=== PATIENT | female | born 1960 | race Caucasian/White ===

== ENCOUNTER 2017-04-16 22:11 | Inpatient (IN) | payer BC ==
[~2017-04-16] VITALS: Ht 167.6 cm; Wt 98.6 kg
[~2017-04-16 22:11] MED LIST: BUDE6HFA; EXEN10PE; GLIM4TAB55; INSU100V19 SQ; MTF1000T
[2017-04-16 22:13] VITALS: Ht 167.6 cm; Wt 98.6 kg
[2017-04-16] MEDS ORDERED: MAGNESIUM SULFATE ONE (22:19)
[2017-04-16] MEDS ORDERED: D5W ONE (22:19)
[2017-04-16] MEDS ORDERED: LEVALBUTEROL (NEB) 1.25 MG/0.5 ML AMP ONE (22:22)
[2017-04-16] MEDS ORDERED: METHYLPREDNISOLONE 125 MG INJ ONE (22:23)
[2017-04-16] MEDS ORDERED: IPRATROPIUM (NEB) 0.5 MG/2.5 ML AMP INH STA (22:24)
[2017-04-16] MEDS ORDERED: METHYLPREDNISOLONE 125 MG INJ IV STA (22:24)
[2017-04-16] MEDS ORDERED: LEVALBUTEROL (NEB) 1.25 MG/0.5 ML AMP INH STA (22:24)
--- NOTE | 2017-04-16 22:24 | ERA ---
ER Documentation Chief Complaint Date/Time DATE: 04/16/17 TIME: 22:23 Chief Complaint Shortness of breath HPI The patient is 56-year-old female, presenting to the ER because of acute shortness of breath for the last 45 minutes prior to arrival. He was treated by EMS with 2 albuterol nebulizer treatment with minimal response. She is awake , alert, able to answer question appropriately. She has similar symptoms previously, denies fever, neck pain, chest pain, abdominal pain, vomiting, dysuria, diarrhea, constipation. She does not smoke nor drink Past medical history: Diabetes mellitus, asthma Past surgical history: Hysterectomy ROS All systems reviewed and are negative except as per history of present illness. Medications Home Meds Reported Medications Insulin Aspart* (Novolog Insulin Pen*) 100 Unit/Ml Soln, 38 UNIT SC WITH BREAKFAST DINNE, EA 04/16/17 Duloxetine Hcl* (Duloxetine Hcl*) 60 Mg Capsule.dr, 60 MG PO DAILY, #30 CAP 04/16/17 Montelukast Sodium* (Montelukast Sodium*) 10 Mg Tablet, 10 MG PO QHS, #30 TAB 04/16/17 Meloxicam* (Meloxicam*) 7.5 Mg Tablet, 7.5 MG PO DAILY, #30 TAB 04/16/17 Prednisone* (Prednisone*) 5 Mg Tab, 5 MG PO DAILY, TAB 04/16/17 Budesonide-Formoterol Fumarate* (Symbicort*) 6 Gm Hfa.aer.ad 11/27/10 Metformin* (Glucophage*) 1,000 Mg Tablet 11/27/10 Glimepiride* (Amaryl*) 4 Mg Tablet 11/27/10 Insulin Glargine,Hum.rec.anlog (Lantus) 100 U/Ml Vial, 68 UNIT SQ QHS 11/27/10 Discontinued Reported Medications Exenatide* (Byetta*) 10 Mcg/0.04 Pen.injctr 11/27/10 Allergies Allergies: Coded Allergies: No Known Allergies (Unverified Allergy, Mild, 04/16/17) PMhx/Soc History of Surgery: Yes (RT OVARIAN CYSTECTOMY. HYSTERECTOMY) Hx Neurological Disorder: No Hx Respiratory Disorders: No Hx Cardiac Disorders: No Hx Psychiatric Problems: No Hx Miscellaneous Medical Probl: No Hx Alcohol Use: No Hx Substance Use: No Hx Tobacco Use: No Physical Exam Vitals Vital Signs Date Time Temp Pulse Resp B/P Pulse Ox O2 Delivery O2 Flow Rate FiO2 04/17/17 01:57 101 22 158/87 97 Nasal Cannula 2.0 04/16/17 23:59 100 2.0 28 04/16/17 23:48 115 24 176/77 100 Nasal Cannula 2.0 04/16/17 22:45 125 100 100 04/16/17 22:13 97.9 131 32 164/89 100 Physical Exam Const: Acute moderate respiratory distress. Head: Atraumatic. Eyes: Normal Conjunctiva. ENT: Normal External Ears, Nose and Mouth. Neck: Full range of motion. No meningismus. Resp: Bilateral expiratory wheezes, tachypneic Cardio: Regular tachycardic Abd: Soft, non distended, normal bowel sounds, non tender. Skin: No petechiae or rashes. Back: No midline or flank tenderness. Ext: No cyanosis, or edema. Neur: Awake and alert. No focal deficit Psych: Normal Mood and Affect. Result Diagram: 04/16/17221904/16/172219 Results 24 hrs Laboratory Tests Test 04/16/17 22:20 04/16/17 22:59 04/16/17 23:30 White Blood Count 11.510^3/ul Red Blood Count 4.8310^6/ul Hemoglobin 15.5g/dl Hematocrit 47.4% Mean Corpuscular Volume 98.1fl Mean Corpuscular Hemoglobin 32.1pg Mean Corpuscular Hemoglobin Concent 32.7g/dl Red Cell Distribution Width 11.5% Platelet Count 50613^3/UL Mean Platelet Volume 9.3fl Neutrophils % 35.2% Lymphocytes % 53.1% Monocytes % 4.4% Eosinophils % 6.4% Basophils % 0.6% Nucleated Red Blood Cells % 0.0/100WBC Neutrophils # 4.110^3/ul Lymphocytes # 6.110^3/ul Monocytes # 0.510^3/ul Eosinophils # 0.710^3/ul Basophils # 0.110^3/ul Nucleated Red Blood Cells # 0.010^3/ul Prothrombin Time 12.3Sec Prothrombin Time Ratio 1.0 INR International Normalized Ratio 0.91 Activated Partial Thromboplast Time 23.3Sec D-Dimer 506.70ng/ml D-Dimer Comment Sodium Level 137mmol/L Potassium Level 3.3mmol/L Chloride Level 97mmol/L Carbon Dioxide Level 32mmol/L Anion Gap 11 Blood Urea Nitrogen 14mg/dl Creatinine 0.59mg/dl Glucose Level 185mg/dl Calcium Level 9.8mg/dl Total Bilirubin 0.1mg/dl Direct Bilirubin 0.00mg/dl Indirect Bilirubin 0.1mg/dl Aspartate Amino Transf (AST/SGOT) 41IU/L Alanine Aminotransferase (ALT/SGPT) 69IU/L Alkaline Phosphatase 128IU/L Troponin I < 0.012ng/ml B-Type Natriuretic Peptide 59PG/ML Total Protein 8.2g/dl Albumin 5.0g/dl Globulin 3.20g/dl Albumin/Globulin Ratio 1.56 Bedside Glucose 216mg/dL Blood Gas Specimen Source Blood arterial Arterial Blood Date Drawn 04/16/2017 11:30:17 PM Arterial Blood pH (Temp corrected) 7.390 Arterial Blood pCO2 (Temp correct) 37.5mmhg Arterial Blood pO2 (Temp corrected) 569.9mmHG Arterial Blood HCO3 22.2mmol/L Arterial Blood Base Excess -2.3mmol/L Arterial Blood Oxygen Saturation 99.5mmHG Jvaad Test ACCEPTAB Arterial Blood Gas Puncture Site Right Radial Arterial Blood Carboxyhemoglobin 0.3% Arterial Blood Methemoglobin 0.5% Blood Gas A-a O2 Differential 105.6mmHg Oxyhemoglobin Percent 98.7% Total Hemoglobin 14.5g/dl Blood Gas Temperature 37.0C Blood Gas Respiration Rate 20.0 Blood Gas Actual Respiration Rate 25 Blood Gas Modality MASK - BIPAP FiO2 100.0% Blood Gas Pressure Support 10 Blood Gas IPAP/EPAP Ratio 15/5 Blood Gas Notified Whom MA Blood Gas Notified Time 04/16/2017 11:40:00 PM Current Medications Medications (Trade) Dose Ordered Sig/Pilo Route PRN Reason Start Time Stop Time Status Last Admin Dose Admin Levalbuterol (Xopenex Neb) 3.75 mg ONCE STAT INH 04/16/17 22:24 04/16/17 22:29 DC 04/16/17 22:40 Ipratropium [place] (Atrovent 0.02% (Neb)) 1.5 mg ONCE STAT INH 04/16/17 22:24 04/16/17 22:29 DC 04/16/17 22:44 Methylprednisolone Sodium Succinate 125 mg 125 mg ONCE STAT IV 04/16/17 22:24 04/16/17 22:29 DC 04/16/17 22:44 Magnesium Sulfate 50 ml @ 25 mls/hr ONCE ONCE IVPB 04/16/17 22:30 04/17/17 00:29 DC 04/16/17 22:44 Sodium Chloride 1,000 ml @ 1,000 mls/hr Q1H ONCE IV 04/16/17 23:00 04/16/17 23:59 DC 04/16/17 22:44 Potassium Chloride 20 meq/ Sodium Chloride 110 ml @ 55 mls/hr ONCE ONCE IVPB 04/17/17 00:00 04/17/17 01:59 DC 04/17/17 00:37 Sodium Chloride (NS) 100 ml @ ud STK-MED ONCE .ROUTE 04/17/17 01:21 04/17/17 01:22 DC 04/17/17 01:42 Iohexol (Omnipaque 300mg/ ml) 150 ml STK-MED ONCE .ROUTE 04/17/17 01:21 04/17/17 01:22 DC 04/17/17 01:42 Procedures/[place] [id number] Radiology Main Line: [phone] DIAGNOSTIC IMAGING REPORT Patient: MENA CAMEJO : 1960 Age: 56 Sex: F MR #: [id number] DOS: 04/16/174 Ordering MD: SHYAM SANCHEZ MD Location: E/R Room/Bed: PROCEDURE: XR Chest. CLINICAL INDICATION: Shortness of breath. TECHNIQUE: Single frontal view. COMPARISON: None. FINDINGS: The lungs are clear. The heart size is normal. There is no pleural effusion. There is no pneumothorax. IMPRESSION: 1. Normal chest radiograph. RPTAT: QQ .Ravindra Guerra MD, MD Date Time Electronically viewed and signed by .Ravindra Guerra MD, MD on 04/16/2017 23:00 .R/ CC: SHYAM SANCHEZ MD [place] [id number] Radiology Main Line: [phone] DIAGNOSTIC IMAGING REPORT Patient: MENA CAMEJO : 1960 Age: 56 Sex: F MR #: [id number] DOS: 04/17/17 0006 Ordering MD: SHYAM SANCHEZ MD Location: E/R Room/Bed: PROCEDURE: CT Chest with IV contrast. CLINICAL INDICATION: Shortness of breath TECHNIQUE: CT scan of the chest was performed on a multidetector scanner. The patient was scanned following the uncomplicated intravenous administration of 100 cc of Omnipaque-300 contrast. 3D, coronal and sagittal reformatted images were obtained from the axial source images. Images were reviewed on a high-resolution PACS workstation. The total exam CTDlvol = 41 mGy and DLP = 798 mGy-cm. One of the following 3 dose reduction techniques were used: Automated exposure control; adjustment of the mA and/or kV according to patient size; or use of iterative reconstruction technique. COMPARISON: Chest x-ray 04/16/2017 FINDINGS: No filling defects are identified within the pulmonary arteries to suggest pulmonary artery thrombosis. Thoracic aorta is normal caliber without aneurysm or dissection. There is a right hilar lymph nodes measuring up to 1.1 cm. There are subcentimeter scattered mediastinal lymph nodes.. Heart is normal size. No pericardial fluid or thickening. There is mild lower lobe dependent atelectasis. This lingular scarring or atelectasis. No focal infiltrate. There is no pleural effusion. There is no pneumothorax. There are no fractures. Chest wall is unremarkable. Imaging obtained through the upper abdomen demonstrates enlarged 20 cm liver with diffuse hypodensity/fatty infiltration. IMPRESSION: 1. No evidence for pulmonary embolus. 2. Mild dependent lower lobe atelectasis. Minimal lingular scarring or atelectasis. 3. Minimally enlarged right hilar lymph node. Sub centimeter left and mediastinal lymph nodes. 4. Enlarged fatty liver. RPTAT: HMVK .Shyam Ibarra MD, MD Date Time Electronically viewed and signed by .Shyam Ibarra MD, MD on 04/17/2017 01:58 .K/ CC: SHYAM SANCHEZ MD EKG: Read by emergency physician Rate/Rhythm: Sinus tachycardia 126 beats/min QRS, ST, T-waves: No ST elevation, no T inversion, septal Q waves Impression: Abnormal EKG MEDICAL MAKING DECISION: The patient is a 56-year-old female, presenting with acute respiratory failure, acute severe asthma exacerbation, acute hypokalemia. She was immediately treated with BiPAP, Solu-Medrol 125 mg IV, Xopenex 3.75 mg and Atrovent 1.5 mg continuous nebulizer over one hour, magnesium sulfate 2 g over 20 minutes and 1 L normal saline for acute severe asthma exacerbation, potassium chloride 20 mEq IV for acute hypokalemia with good response On multiple reevaluation, she felt better. ABG was good, therefore she was switched to nasal cannula and she was able to tolerate nasal cannula well The differential diagnoses considered include but are not limited to asthma, COPD, pneumonia, pulmonary embolus, pleural effusion, congestive heart failure. Critical Care: Time: 35 minutes excluding all billable procedures. Treatments/Evaluations: Close monitoring and treatment of unstable vital signs, cardiorespiratory, and neurologic status, while maintaining tight balance of fluid, respiratory, and cardiac interventions. Departure Diagnosis: Primary Impression: Acute respiratory distress Additional Impressions: Acute asthma exacerbation Hypokalemia Condition: Stable Comments I discussed the findings with the patient. I discussed the patient with her physician Dr. Brito who was made aware of the lab, the treatment, the patient condition. The patient is admitted to telemetry at 2:10 AM SHYAM SANCHEZ MD Apr 16, 2017 22:24
[2017-04-16] MEDS ORDERED: IPRATROPIUM (NEB) 0.5 MG/2.5 ML AMP ONE (22:26)
[2017-04-16] MEDS ORDERED: MAGNESIUM SULFATE 2 GM/50 ML 50 ML IVPB ONE (22:30)
[2017-04-16 22:44] LABS: ADD SCAN DIFF NO
[2017-04-16 22:46] LABS: ABNORMAL IP MESSAGE 1; BASOPHIL # 0.1 10^3/ul (0.0-0.1); BASOPHILS % 0.6 % (0.0-2.0); EOSINOPHILS # 0.7 10^3/ul (0.0-0.5); EOSINOPHILS % 6.4 % (0.0-7.0); HEMATOCRIT 47.4 % (37.0-47.0); HEMOGLOBIN 15.5 g/dl (12.0-16.0); LYMPHOCYTES # 6.1 10^3/ul (0.8-2.9); LYMPHOCYTES % 53.1 % (15.0-51.0); MEAN CORPUSCULAR HEMOGLOBIN 32.1 pg (29.0-33.0); MEAN CORPUSCULAR HGB CONC 32.7 g/dl (32.0-37.0); MEAN CORPUSCULAR VOLUME 98.1 fl (82.0-101.0); MEAN PLATELET VOLUME 9.3 fl (7.4-10.4); MONOCYTE # 0.5 10^3/ul (0.3-0.9); MONOCYTES % 4.4 % (0.0-11.0); NEUTROPHIL # 4.1 10^3/ul (1.6-7.5); NEUTROPHILS % 35.2 % (39.0-77.0); PLATELET COUNT 343 10^3/UL (140-415); RED BLOOD COUNT 4.83 10^6/ul (4.20-5.40); RED CELL DISTRIBUTION WIDTH 11.5 % (11.5-14.5); WHITE BLOOD COUNT 11.5 10^3/ul (4.8-10.8)
[2017-04-16] MEDS ORDERED: SOD CHLORIDE 0.9% 1,000 ML IV ONE (23:00)
--- NOTE | 2017-04-16 23:00 | RADRPT ---
PROCEDURE: XR Chest. CLINICAL INDICATION: Shortness of breath. TECHNIQUE: Single frontal view. COMPARISON: None. FINDINGS: The lungs are clear. The heart size is normal. There is no pleural effusion. There is no pneumothorax. IMPRESSION: 1. Normal chest radiograph. RPTAT: QQ .Ravindra Guerra MD, MD Date Time Electronically viewed and signed by .Ravindra Guerra MD, on 04/16/2017 23:00 .R/
[2017-04-16 23:05] LABS: ALANINE AMINOTRANSFERASE 69 IU/L (13-69); ALBUMIN/GLOBULIN RATIO 1.56; ALKALINE PHOSPHATASE 128 IU/L (42-121); ANION GAP 11 (8-16); ASPARTATE AMINO TRANSFERASE 41 IU/L (15-46); BILIRUBIN,INDIRECT 0.1 mg/dl (0-1.1); BILIRUBIN,TOTAL 0.1 mg/dl (0.2-1.3); BLOOD UREA NITROGEN 14 mg/dl (7-20); CALCIUM 9.8 mg/dl (8.4-10.2); CARBON DIOXIDE 32 mmol/L (21-31); CHLORIDE 97 mmol/L (97-110); CREATININE 0.59 mg/dl (0.44-1.00); GLUCOSE 185 mg/dl (70-220); POTASSIUM 3.3 mmol/L (3.5-5.1); SODIUM 137 mmol/L (135-144); TOTAL PROTEIN 8.2 g/dl (6.1-8.1)
[2017-04-16 23:15] LABS: B-TYPE NATRIURETIC PEPTIDE 59 PG/ML (0-125)
[2017-04-16 23:18] LABS: TROPONIN-I < 0.012 ng/ml (0.00-0.12)
[2017-04-16] MEDS ORDERED: MELO-109 PO (23:18)
[2017-04-16] MEDS ORDERED: MONT10TA24 PO (23:18)
[2017-04-16] MEDS ORDERED: NOVO3I SC (23:18)
[2017-04-16] MEDS ORDERED: PRED5 PO (23:18)
[2017-04-16] MEDS ORDERED: DULO60CA59 PO (23:18)
[2017-04-16 23:23] LABS: INR 0.91; PROTIME 12.3 Sec (12.2-14.2)
[2017-04-16 23:24] LABS: PARTIAL THROMBOPLASTIN TIME 23.3 Sec (25.0-35.0)
[2017-04-16 23:40] LABS: AADO2 Arterial 105.6 mmHg (7.0-24.0); Allen Test ACCEPTAB; Arterial Base Excess -2.3 mmol/L (-3.0-3); Arterial COHb 0.3 % (0.0-3.0); Arterial Fraction of Oxyhgb 98.7 % (93.0-99.0); Arterial HCO3 22.2 mmol/L (22.0-26.0); Arterial MetHb 0.5 % (0.0-1.5); Arterial Total Hemglobin 14.5 g/dl (12.0-18.0); Blood Gas IEPAP 15/5; Blood Gas PS 10; MODE MASK - BIPAP
[2017-04-16 23:43] LABS: D-DIMER 506.7 ng/ml (<460)
[2017-04-17] MEDS ORDERED: POTASSIUM CHLORIDE 20 MEQ in SOD CHLORIDE 0.9% 100 ML IVPB ONE ×2
[2017-04-17] MEDS ORDERED: IBUPROFEN 200 MG TAB ONE (00:33)
[2017-04-17] MEDS ORDERED: SOD CHLORIDE 0.9% 100 ML ONE (01:21)
[2017-04-17] MEDS ORDERED: IOHEXOL 300MG/ML 150 ML BTL ONE (01:21)
--- NOTE | 2017-04-17 01:58 | RADRPT ---
PROCEDURE: CT Chest with IV contrast. CLINICAL INDICATION: Shortness of breath TECHNIQUE: CT scan of the chest was performed on a multidetector scanner. The patient was scanned following the uncomplicated intravenous administration of 100 cc of Omnipaque-300 contrast. 3D, co tim and sagittal reformatted images were obtained from the axial source images. Images were review ed on a high-resolution PACS workstation. The total exam CTDlvol = 41 mGy and DLP = 798 mGy-cm. One of the following 3 dose reduction techniques were used: Automated exposure control; adjustment of th e mA and/or kV according to patient size; or use of iterative reconstruction technique. COMPARISON: Chest x-ray 04/16/2017 FINDINGS: No filling defects are identified within the pulmonary arteries to suggest pulmonary artery thrombos is. Thoracic aorta is normal caliber without aneurysm or dissection. There is a right hilar lymph n odes measuring up to 1.1 cm. There are subcentimeter scattered mediastinal lymph nodes.. Heart is normal size. No pericardial fluid or thickening. There is mild lower lobe dependent atelectasis. This lingular scarring or atelectasis. No focal infi ltrate. There is no pleural effusion. There is no pneumothorax. There are no fractures. Chest wall is unremarkable. Imaging obtained through the upper abdomen demonstrates enlarged 20 cm liver with diffuse hypodensit y/fatty infiltration. IMPRESSION: 1. No evidence for pulmonary embolus. 2. Mild dependent lower lobe atelectasis. Minimal lingular scarring or atelectasis. 3. Minimally enlarged right hilar lymph node. Sub centimeter left and mediastinal lymph nodes. 4. Enlarged fatty liver. RPTAT: HMVK .Shyam Ibarra MD, MD Date Time Electronically viewed and signed by .Shyam Ibarra MD, MD on 04/17/2017 01:58 .K/
[2017-04-17] MEDS ORDERED: IPRATROPIUM (NEB) 0.5 MG/2.5 ML AMP HHN ONE (09:00)
[2017-04-17] MEDS ORDERED: metFORMIN 500 MG TAB PO ONE (09:00)
[2017-04-17] MEDS ORDERED: LEVALBUTEROL (NEB) 0.63 MG/3 ML AMP HHN ONE (09:00)
[2017-04-17] MEDS ORDERED: INSULIN GLARGINE [LANtus] 3 ML PEN SC ONE (09:00)
[2017-04-17] MEDS ORDERED: ACETAMINOPHEN 325 MG TAB PO ONE (09:00)
[2017-04-17] MEDS ORDERED: METHYLPREDNISOLONE 125 MG INJ IV ONE (09:00)
[2017-04-17] MEDS ORDERED: GLUCOSE GEL 15 GRAM TUBE PO PRN ×2 (09:30)
[2017-04-17] MEDS ORDERED: GLUCAGON 1 MG INJ IM PRN (09:30)
[2017-04-17] MEDS ORDERED: DEXTROSE 50% 50 ML SYRINGE IV PRN ×2 (09:30)
[2017-04-17] MEDS ORDERED: GLUCOSE GEL 15 GRAM TUBE BUCCAL PRN (09:30)
[2017-04-17] MEDS ORDERED: METHYLPREDNISOLONE 125 MG INJ ONE (10:30)
[2017-04-17] MEDS ORDERED: ACETAMINOPHEN 325 MG TAB ONE (10:30)
[2017-04-17] MEDS ORDERED: SOD CHLORIDE 0.9% 1,000 ML IV SCH (13:09)
[2017-04-17] MEDS ORDERED: NACL 0.9% 3 ML SYG IV SCH (13:30)
[2017-04-17] MEDS ORDERED: DOCUSATE SODIUM 100 MG CAP PO PRN (13:30)
[2017-04-17] MEDS ORDERED: ACETAMINOPHEN 325 MG TAB PO PRN (13:30)
[2017-04-17] MEDS ORDERED: MAGNESIUM HYDROXIDE 30ML CUP PO PRN (13:30)
--- NOTE | 2017-04-17 13:31 | HP ---
Date/Time of Note Date/Time of Note DATE: 04/17/17 TIME: 13:22 Assessment/Plan VTE Prophylaxis VTE Prophylaxis Intervention: heparin Assessment/Plan Problems: (1) Acute asthma exacerbation Status: Acute Comment: She has had a flareup without clear reason. She will be treated aggressively and on loss and can place her on antibiotics. She is already significantly improved as compared when she first hit the emergency room hopefully this will not be a prolonged or protracted course Qualifiers: Asthma severity: severe persistent Qualified Code: J45.51 - Severe persistent asthma with acute exacerbation (2) Type 2 diabetes mellitus treated with insulin Status: Chronic Comment: At this time we will continue her on her outpatient regimen and monitor her blood sugars carefully adjustments as needed (3) Asthma, severe persistent Status: Chronic Comment: As above. She is on steroids Montella cast breathing treatments and baseline inhalers. Qualifiers: Asthma complication type: with acute exacerbation Qualified Code: J45.51 - Severe persistent asthma with acute exacerbation (4) Overweight (BMI 25.0-29.9) Status: Chronic Comment: This is actually improved as compared to a long-term (5) Migraine syndrome Status: Chronic Comment: This is quiescent and inactive (6) Lumbar disc disease Status: Chronic Comment: This is relatively stable continue observation treatment please note the steroids will help with this (7) Nonalcoholic fatty liver disease Status: Chronic Comment: Noted. HPI/ROS Admit Date/Time Admit Date/Time April 17, 2017 Hx of Present Illness 56-year-old female with insulin treated diabetes mellitus type 2; asthma persistent severe chronically on steroids; overweight; lumbar disc disease etc. Patient been her usual state of health maintained with home nebulizer therapy. She began to have worsening dyspnea in the last 24 hours. This successfully rapidly to the point that the family called 911 to have her transported. Please note she is not a frequent visitor of the emergency room. In the emergency room she had negative imaging studies of the lungs but was quite tight. She is being admitted for treatment of severe exacerbation of her underlying asthma persistent severe ROS Constitutional: no complaints (Denies fevers or chills she reports she gets sweaty with ambulation) Eyes: no complaints ENT: no complaints Respiratory: shortness of breath, wheezing Cardiovascular: no complaints Gastrointestinal: no complaints Genitourinary: no complaints Musculoskeletal: other (Lower back pain with chronic sciatica unchanged) Neurologic: no complaints Endocrine: no complaints Lymphatic: no complaints PMH/Family/Social Past Medical History Asthma persistent severe; diabetes mellitus type 2 insulin treated; overweight; allergic rhinitis; lumbar disc disease with sciatica; left knee torn meniscus; allergic rhinitis; nonalcoholic fatty liver disease; migraine syndrome; penicillin allergy Allergic penicillin; intolerant topiramate; intolerant SGL T2 drugs Outpatient medication regimen 1) [place] 1.5 mg q. weeks 2) Lantus insulin 60 units nightly 3) Humalog insulin 36 units prior to meals 4) Metformin 1 g twice daily 5) prednisone 5 mg morning 1 mg the afternoon 6) duloxetine 60 mg a day 7) Montella cast 10 mg nightly 8) Symbicort 1604.52 puffs twice daily 9) glipizide 20 mg twice daily Medical History: diabetes, hypothyroid Past Surgical History Status post 3; status post GUNJAN with unilateral salpingo-oophorectomy 2005; status post unilateral salpingo-oophorectomy 2010; status post left hand trigger finger release; Family History Significant Family History: asthma, heart disease, diabetes, hypertension, other (Positive for migraine) Social History Born in [place] and razor lives lived in [facility] for 33 years she lives with her domestic partner and children she works for [employer] Alcohol Use: none Smoking Status: Never smoker Drug Use: none Exam/Review of Systems Vital Signs Vitals Vital Signs Date Time Temp Pulse Resp B/P Pulse Ox O2 Delivery O2 Flow Rate FiO2 04/17/17 10:49 92 18 98 Nasal Cannula 2.0 04/17/17 08:30 98.0 146/74 04/16/17 23:59 28 Exam Constitutional: alert, oriented Psych: anxiety, no complaints Head: atraumatic, normocephalic Eyes: EOMI, PERRL, nl conjunctiva, nl lids, nl sclera ENMT: mucosa pink and moist, nl external ears & nose, nl lips & teeth, nl nasal mucosa & septum Neck: non-tender, supple Respiratory: clear to auscultation, normal air movement Cardiovascular: nl pulses, regular rate and rhythm Gastrointestinal: nl liver, spleen, non-tender, soft Neurological: STRATEGIC MANAGER II-XII intact, nl mental status, nl speech, nl strength Skin: nl turgor, rash or lesions Labs Result Diagram: 04/16/17221904/16/172219 Medications Medications Current Medications Miscellaneous Information 1 ea NOTE XX ; Start 04/17/17 at 09:30 Glucose (Glutose) 15 gm Q15M PRN PO DECREASED GLUCOSE; Start 04/17/17 at 09:30 Glucose (Glutose) 22.5 gm Q15M PRN PO DECREASED GLUCOSE; Start 04/17/17 at 09: 30 Dextrose (D50w Syringe) 25 ml Q15M PRN IV DECREASED GLUCOSE; Start 04/17/17 at 09:30 Dextrose (D50w Syringe) 50 ml Q15M PRN IV DECREASED GLUCOSE; Start 04/17/17 at 09:30 Glucagon (Glucagen) 1 mg Q15M PRN IM DECREASED GLUCOSE; Start 04/17/17 at 09:30 Glucose 15 gm 15 gm Q15M PRN BUCCAL DECREASED GLUCOSE; Start 04/17/17 at 09:30 Sodium Chloride (NS) 1,000 ml @ 125 mls/hr Q8H IV ; Start 04/17/17 at 13:09; Stop 04/17/17 at 21:08 Lorazepam (Ativan) 0.5 mg Q8H PRN PO ANXIETY; Start 04/17/17 at 13:30; Status UNV Aspirin (Aspirin) 81 mg DAILY PO ; Start 04/18/17 at 09:00; Status UNV Methylprednisolone Sodium Succinate (Solu-Medrol) 60 mg Q6 IV ; Start 04/17/17 at 18:00; Status UNV Acetaminophen (Tylenol Tab) 650 mg Q6H PRN PO PAIN LEVEL 1-3 OR FEVER; Start at 13:30; Status UNV Acetaminophen/ Hydrocodone Bitart ([place] (5/325)) 1 tab Q6H PRN PO PAIN LEVEL 4 -6; Start 04/17/17 at 13:30; Status UNV Zolpidem Tartrate (Ambien) 5 mg QHS PRN PO INSOMNIA; Start 04/17/17 at 13:30; Status UNV Docusate Sodium (Colace) 100 mg Q12H PRN PO CONSTIPATION; Start 04/17/17 at 13: 30; Status UNV Magnesium Hydroxide (Milk Of Mag) 30 ml DAILY PRN PO CONSTIPATION; Start at 13:30; Status UNV CAMPBELL EWIGN MD Apr 17, 2017 13:31
[2017-04-17] MEDS ORDERED: AZITHROMYCIN 250 MG TAB PO ONE (14:00)
[2017-04-17] MEDS ORDERED: HEPARIN 5,000 UNIT/0.5 ML VIAL SC SCH (14:00)
[2017-04-17] MEDS: ACCU-CHEK XX SCH ×2 (14:00→19:32)
[2017-04-17] MEDS: CIPROFLOXACIN 500 MG TAB PO SCH ×2 (15:35→21:39)
[2017-04-17] MEDS: INSULIN ASPART [NOVOLOG] 3 ML PEN SC SCH ×4 (15:39→21:54)
[2017-04-17 16:30] VITALS: TEMP 98.2
[2017-04-17 17:18] VITALS: BP 135/72; PULSE 78; RESP 18
[2017-04-17] MEDS: METHYLPREDNISOLONE 125 MG INJ IV SCH (17:57)
[2017-04-17] MEDS: GLIMEPIRIDE 4 MG TAB PO SCH (18:06)
[2017-04-17] MEDS: ALBUTEROL/IPRATROPIUM (NEB) 3 ML AMP HHN SCH ×2 (18:23→20:18)
[2017-04-17] MEDS: HEPARIN 5,000 UNIT/0.5 ML VIAL SC SCH (19:32)
[2017-04-17 20:02] VITALS: PULSE 103
[2017-04-17 21:00] VITALS: BP 127/58; PULSE 100; RESP 16
[2017-04-17] MEDS: SALMETEROL/FLUTICASONE 500/50 INHA INH SCH (21:00)
[2017-04-17] MEDS ORDERED: EXENATIDE 250 MCG/ML 2.4ML PEN SC SCH (21:00)
[2017-04-17] MEDS: MONTELUKAST 10 MG TAB PO SCH (21:39)
[2017-04-17] MEDS: FAMOTIDINE 20 MG TAB PO SCH (21:39)
[2017-04-17] MEDS: metFORMIN 500 MG TAB PO SCH (21:39)
[2017-04-17] MEDS: INSULIN GLARGINE [LANtus] 3 ML PEN SC SCH (21:42)
[2017-04-17 22:37] VITALS: PULSE 99
[2017-04-18] VITALS (12 sets, daily range): BP systolic 100–139; BP diastolic 55–68; PULSE 76–103; RESP 19
[2017-04-18] MEDS: ZOLPIDEM 5 MG TAB PO PRN ×2 (00:09→21:33)
[2017-04-18] MEDS: METHYLPREDNISOLONE 125 MG INJ IV SCH ×4 (00:10→21:35)
[2017-04-18] MEDS: HYDROCODONE/APAP (5/325) TAB PO PRN ×4 (00:10→19:50)
[2017-04-18] MEDS: ALBUTEROL/IPRATROPIUM (NEB) 3 ML AMP HHN SCH ×6 (00:26→20:03)
[2017-04-18] MEDS: ACCU-CHEK XX SCH ×4 (03:37→19:51)
[2017-04-18] MEDS: HEPARIN 5,000 UNIT/0.5 ML VIAL SC SCH ×3 (06:04→21:54)
[2017-04-18 06:26] LABS: ADD SCAN DIFF NO
[2017-04-18 06:28] LABS: BASOPHILS % 0.1 % (0.0-2.0); HEMATOCRIT 38.9 % (37.0-47.0); LYMPHOCYTES # 1.2 10^3/ul (0.8-2.9); LYMPHOCYTES % 10.1 % (15.0-51.0); MEAN CORPUSCULAR HEMOGLOBIN 33.1 pg (29.0-33.0); MEAN CORPUSCULAR HGB CONC 33.4 g/dl (32.0-37.0); MEAN PLATELET VOLUME 9.6 fl (7.4-10.4); MONOCYTE # 0.3 10^3/ul (0.3-0.9); MONOCYTES % 2.5 % (0.0-11.0); PLATELET COUNT 252 10^3/UL (140-415); RED BLOOD COUNT 3.93 10^6/ul (4.20-5.40); RED CELL DISTRIBUTION WIDTH 11.6 % (11.5-14.5); WHITE BLOOD COUNT 11.5 10^3/ul (4.8-10.8)
[2017-04-18 07:29] LABS: ALBUMIN 4.2 g/dl (3.3-4.9); ALBUMIN/GLOBULIN RATIO 1.82; BILIRUBIN,INDIRECT 0.3 mg/dl (0-1.1); BILIRUBIN,TOTAL 0.3 mg/dl (0.2-1.3); CALCIUM 9.3 mg/dl (8.4-10.2); CREATININE 0.49 mg/dl (0.44-1.00); POTASSIUM 4.1 mmol/L (3.5-5.1); TOTAL PROTEIN 6.5 g/dl (6.1-8.1)
[2017-04-18] MEDS: GLIMEPIRIDE 4 MG TAB PO SCH ×2 (08:18→17:19)
[2017-04-18] MEDS: metFORMIN 500 MG TAB PO SCH ×2 (08:19→21:33)
[2017-04-18] MEDS: ASPIRIN 81 MG TAB PO SCH (08:19)
[2017-04-18] MEDS: CIPROFLOXACIN 500 MG TAB PO SCH ×2 (08:19→21:27)
[2017-04-18] MEDS: MELOXICAM 7.5 MG TAB PO SCH (08:19)
[2017-04-18] MEDS: FAMOTIDINE 20 MG TAB PO SCH ×2 (08:20→21:27)
[2017-04-18] MEDS: INSULIN ASPART [NOVOLOG] 3 ML PEN SC SCH ×6 (08:22→21:53)
[2017-04-18] MEDS: SALMETEROL/FLUTICASONE 500/50 INHA INH SCH ×2 (10:41→21:26)
[2017-04-18] MEDS: DULOXETINE 30 MG CAP DR PO SCH (10:41)
--- NOTE | 2017-04-18 11:49 | PN ---
Date/Time of Note Date/Time of Note DATE: 04/18/17 TIME: 11:46 Assessment/Plan VTE Prophylaxis VTE Prophylaxis Intervention: heparin Lines/Catheters IV [facility] Saline Lock Assessment/Plan Problems: (1) Acute asthma exacerbation Status: Acute Comment: Try to augment therapeutic with Tiotropium inhalation and also Armando- 24. Qualifiers: Asthma severity: severe persistent Qualified Code: J45.51 - Severe persistent asthma with acute exacerbation (2) Type 2 diabetes mellitus treated with insulin Status: Chronic Comment: Her sugars are up due to the steroids. We will be giving NPH with the dosing of the steroids the NPH will be discontinued with discontinuation of the steroids. Please note she had been on GLP-1 drug however she was getting it as samples and since she could not get samples she was off the medication. This clarifies the information that are emergency room staff gathered incorrectly (3) Asthma, severe persistent Status: Chronic Comment: As above. She is having financial hardship getting her medication Qualifiers: Asthma complication type: with acute exacerbation Qualified Code: J45.51 - Severe persistent asthma with acute exacerbation (4) Migraine syndrome Status: Chronic Comment: Adequately controlled (5) Lumbar disc disease Status: Chronic Comment: Noted. Subjective 24 Hr Interval Summary Free Text/Dictation Patient reports she is feeling a little bit better but is not back to baseline. Still with significant cough. Constitutional: no complaints (Denies fevers chills or sweats) Respiratory: no complaints (Some cough some shortness of breath no longer wheezing) Cardiovascular: no complaints Gastrointestinal: no complaints Exam/Review of Systems Vital Signs Vitals Vital Signs Date Time Temp Pulse Resp B/P Pulse Ox O2 Delivery O2 Flow Rate FiO2 04/18/17 11:37 98.2 76 19 103/62 96 04/18/17 09:07 2.0 04/18/17 09:05 Nasal Cannula 04/16/17 23:59 28 Intake and Output 04/17/17 04/17/17 04/18/17 15:00 23:00 07:00 Intake Total 200 ml Balance 200 ml Exam Constitutional: alert Neck: non-tender, supple Respiratory: clear to auscultation, diminished breath sounds Cardiovascular: nl pulses, regular rate and rhythm Gastrointestinal: nl liver, spleen, non-tender, soft Results Result Diagram: 04/18/17 0547 04/18/17 0549 Results 24 hrs Laboratory Tests Test 04/17/17 14:00 04/17/17 15:08 04/17/17 17:48 04/17/17 19:33 Hemoglobin A1c 10.6 H Bedside Glucose 312 H 227 H 239 H Test 04/17/17 21:37 04/18/17 03:32 04/18/17 05:47 04/18/17 05:49 Bedside Glucose 222 H 280 H White Blood Count 11.5 H Red Blood Count 3.93 L Hemoglobin 13.0 Hematocrit 38.9 Mean Corpuscular Volume 99.0 Mean Corpuscular Hemoglobin 33.1 H Mean Corpuscular Hemoglobin Concent 33.4 Red Cell Distribution Width 11.6 Platelet Count 252 # Mean Platelet Volume 9.6 Neutrophils % 87.0 H Lymphocytes % 10.1 L Monocytes % 2.5 Eosinophils % 0.0 Basophils % 0.1 Nucleated Red Blood Cells % 0.0 Neutrophils # 10.0 H Lymphocytes # 1.2 Monocytes # 0.3 Eosinophils # 0.0 Basophils # 0.0 Nucleated Red Blood Cells # 0.0 Sodium Level 143 Potassium Level 4.1 Chloride Level 102 Carbon Dioxide Level 26 Anion Gap 19 #H Blood Urea Nitrogen 17 Creatinine 0.49 Glucose Level 271 H Calcium Level 9.3 Total Bilirubin 0.3 Direct Bilirubin 0.00 Indirect Bilirubin 0.3 Aspartate Amino Transf (AST/SGOT) 29 Alanine Aminotransferase (ALT/SGPT) 49 Alkaline Phosphatase 89 Total Protein 6.5 # Albumin 4.2 Globulin 2.30 Albumin/Globulin Ratio 1.82 Test 04/18/17 08:17 04/18/17 10:39 Bedside Glucose 269 H 265 H Medications Medications Current Medications Miscellaneous Information 1 ea NOTE XX ; Start 04/17/17 at 09:30 Glucose (Glutose) 15 gm Q15M PRN PO DECREASED GLUCOSE; Start 04/17/17 at 09:30 Glucose (Glutose) 22.5 gm Q15M PRN PO DECREASED GLUCOSE; Start 04/17/17 at 09: 30 Dextrose (D50w Syringe) 25 ml Q15M PRN IV DECREASED GLUCOSE; Start 04/17/17 at 09:30 Dextrose (D50w Syringe) 50 ml Q15M PRN IV DECREASED GLUCOSE; Start 04/17/17 at 09:30 Glucagon (Glucagen) 1 mg Q15M PRN IM DECREASED GLUCOSE; Start 04/17/17 at 09:30 Glucose (Glutose) 15 gm Q15M PRN BUCCAL DECREASED GLUCOSE; Start 04/17/17 at 09 :30 Lorazepam (Ativan) 0.5 mg Q8H PRN PO ANXIETY; Start 04/17/17 at 13:30 Aspirin (Aspirin) 81 mg DAILY PO Last administered on 04/18/17 08:19; Admin Dose 81 MG; Start 04/18/17 at 09:00 Methylprednisolone Sodium Succinate (Solu-Medrol) 60 mg Q6 IV Last administered on 04/18/17 05:57; Admin Dose 60 MG; Start 04/17/17 at 18:00 Acetaminophen (Tylenol Tab) 650 mg Q6H PRN PO PAIN LEVEL 1-3 OR FEVER; Start at 13:30 Acetaminophen/ Hydrocodone Bitart ([place] (5/325)) 1 tab Q6H PRN PO PAIN LEVEL 4 -6 Last administered on 04/18/17 05:57; Admin Dose 1 TAB; Start 04/17/17 at 13: 30 Zolpidem Tartrate (Ambien) 5 mg QHS PRN PO INSOMNIA Last administered on 00:09; Admin Dose 5 MG; Start 04/17/17 at 13:30 Docusate Sodium (Colace) 100 mg Q12H PRN PO CONSTIPATION; Start 04/17/17 at 13: 30 Magnesium Hydroxide (Milk Of Mag) 30 ml DAILY PRN PO CONSTIPATION; Start at 13:30 Famotidine (Pepcid) 20 mg Q12 PO Last administered on 04/18/17 08:20; Admin Dose 20 MG; Start 04/17/17 at 21:00 Duloxetine HCl (Cymbalta) 60 mg DAILY PO Last administered on 04/18/17 10:41; Admin Dose 60 MG; Start 04/18/17 at 09:00 Insulin Glargine (Lantus) 68 unit QHS SC Last administered on 04/17/17 21:42; Admin Dose 68 UNIT; Start 04/17/17 at 21:00 Meloxicam (Mobic) 7.5 mg DAILY PO Last administered on 04/18/17 08:19; Admin Dose 7.5 MG; Start 04/18/17 at 09:00 Metformin HCl (Glucophage) 1,000 mg BID PO Last administered on 04/18/17 08:19 ; Admin Dose 1,000 MG; Start 04/17/17 at 21:00 Montelukast Sodium (Singulair) 10 mg QHS PO Last administered on 04/17/17 21: 39; Admin Dose 10 MG; Start 04/17/17 at 21:00 Salmeterol Xinafoate/ Fluticasone (Advair 500/50 Diskus) 1 inh BID INH Last administered on 04/18/17 10:41; Admin Dose 1 INH; Start 04/17/17 at 21:00 Diagnostic Test (Pha) (Accu-Chek) 1 ea 02 XX Last administered on 04/18/17 03: 37; Admin Dose 1 EA; Start 04/18/17 at 02:00 Ciprofloxacin (Cipro) 500 mg BID PO Last administered on 04/18/17 08:19; Admin Dose 500 MG; Start 04/17/17 at 14:00 Heparin Sodium (Porcine) (Heparin (5000 Units/0.5 ml)) 5,000 unit Q8 SC Last administered on 04/18/17 06:04; Admin Dose 5,000 UNIT; Start 04/17/17 at 19:30 CAMPBELL EWING MD Apr 18, 2017 11:49
[2017-04-18] MEDS: TIOTROPIUM 18 MCG CAPSULE INHA DEV INH SCH (14:21)
[2017-04-18] MEDS: NPH, HUMAN INSULIN ISOPHANE 3ML VIAL SC SCH ×2 (14:23→22:02)
[2017-04-18] MEDS: THEOPHYLLINE (SR) 200 MG CAPSR PO SCH (21:27)
[2017-04-18] MEDS: MONTELUKAST 10 MG TAB PO SCH (21:27)
[2017-04-18] MEDS: INSULIN GLARGINE [LANtus] 3 ML PEN SC SCH (21:54)
[2017-04-19] VITALS (11 sets, daily range): BP systolic 116–167; BP diastolic 62–86; PULSE 78–122; RESP 19–20
[2017-04-19] MEDS: ALBUTEROL/IPRATROPIUM (NEB) 3 ML AMP HHN SCH ×6 (00:25→20:59)
[2017-04-19] MEDS: LORAZEPAM 0.5 MG TAB PO PRN ×2 (01:44→18:29)
[2017-04-19] MEDS: ACCU-CHEK XX SCH ×4 (01:44→20:18)
[2017-04-19] MEDS: METHYLPREDNISOLONE 125 MG INJ IV SCH ×3 (05:17→23:19)
[2017-04-19] MEDS: NPH, HUMAN INSULIN ISOPHANE 3ML VIAL SC SCH ×3 (05:25→23:23)
[2017-04-19] MEDS: HEPARIN 5,000 UNIT/0.5 ML VIAL SC SCH ×3 (05:25→22:14)
[2017-04-19] MEDS: INSULIN ASPART [NOVOLOG] 3 ML PEN SC SCH ×6 (08:25→22:00)
[2017-04-19] MEDS: DULOXETINE 30 MG CAP DR PO SCH (08:32)
[2017-04-19] MEDS: TIOTROPIUM 18 MCG CAPSULE INHA DEV INH SCH (08:32)
[2017-04-19] MEDS: SALMETEROL/FLUTICASONE 500/50 INHA INH SCH ×2 (08:32→22:10)
[2017-04-19] MEDS: MELOXICAM 7.5 MG TAB PO SCH (08:33)
[2017-04-19] MEDS: CIPROFLOXACIN 500 MG TAB PO SCH ×2 (08:33→20:18)
[2017-04-19] MEDS: FAMOTIDINE 20 MG TAB PO SCH ×2 (08:33→20:18)
[2017-04-19] MEDS: ASPIRIN 81 MG TAB PO SCH (08:33)
[2017-04-19] MEDS: GLIMEPIRIDE 4 MG TAB PO SCH ×2 (08:33→17:15)
[2017-04-19] MEDS: metFORMIN 500 MG TAB PO SCH ×2 (08:35→22:11)
[2017-04-19] MEDS: HYDROCODONE/APAP (5/325) TAB PO PRN ×2 (11:17→17:15)
--- NOTE | 2017-04-19 11:48 | PN ---
Date/Time of Note Date/Time of Note DATE: 04/19/17 TIME: 11:46 Assessment/Plan VTE Prophylaxis VTE Prophylaxis Intervention: heparin Lines/Catheters IV [facility] (from [facility] Saline Lock Assessment/Plan Problems: (1) Acute asthma exacerbation Status: Acute Comment: She is steadily improving with treatment. She is not quite at the point of discharge but hopefully within the next 24-48 hours we will get the Qualifiers: Asthma severity: severe persistent Qualified Code: J45.51 - Severe persistent asthma with acute exacerbation (2) Type 2 diabetes mellitus treated with insulin Status: Chronic Comment: Improved control. Continue adjusting regimen (3) Asthma, severe persistent Status: Chronic Comment: As above with continued controller medication therapy. Ideally asthma desensitization in the near future would be a good choice Qualifiers: Asthma complication type: with acute exacerbation Qualified Code: J45.51 - Severe persistent asthma with acute exacerbation (4) Overweight (BMI 25.0-29.9) Status: Chronic Comment: Calorie restriction diet (5) Nonalcoholic fatty liver disease Status: Chronic Comment: Due to her diabetes; calorie restriction diet Subjective 24 Hr Interval Summary Free Text/Dictation Patient reports that she is feeling better but is not at baseline. She does get dyspnea with exertion in the hospital room. She would like to take shower Constitutional: no complaints Respiratory: cough (Cough is diminished), shortness of breath (Shortness of breath is improved) Cardiovascular: no complaints Gastrointestinal: no complaints Exam/Review of Systems Vital Signs Vitals Vital Signs Date Time Temp Pulse Resp B/P Pulse Ox O2 Delivery O2 Flow Rate FiO2 04/19/17 09:47 112 22 97 Nasal Cannula 2.0 04/19/17 07:36 98.2 142/78 04/18/17 12:54 21 Intake and Output 04/18/17 04/18/17 04/19/17 15:00 23:00 07:00 Intake Total 1000 ml 800 ml Balance 1000 ml 800 ml Exam Constitutional: alert, oriented Neck: non-tender, supple Respiratory: clear to auscultation, diminished breath sounds (Air movement has improved) Cardiovascular: nl pulses, regular rate and rhythm Gastrointestinal: nl liver, spleen, non-tender, soft Results Result Diagram: 04/18/17 0547 04/18/17 0549 Results 24 hrs Laboratory Tests Test 04/18/17 12:25 04/18/17 14:19 04/18/17 17:18 04/18/17 19:54 Bedside Glucose 187 195 218 229 H Test 04/18/17 21:30 04/19/17 01:40 04/19/17 05:12 04/19/17 08:21 Bedside Glucose 198 164 199 216 Test 04/19/17 09:49 Bedside Glucose 199 Medications Medications Current Medications Miscellaneous Information 1 ea NOTE XX ; Start 04/17/17 at 09:30 Glucose (Glutose) 15 gm Q15M PRN PO DECREASED GLUCOSE; Start 04/17/17 at 09:30 Glucose (Glutose) 22.5 gm Q15M PRN PO DECREASED GLUCOSE; Start 04/17/17 at 09: 30 Dextrose (D50w Syringe) 25 ml Q15M PRN IV DECREASED GLUCOSE; Start 04/17/17 at 09:30 Dextrose (D50w Syringe) 50 ml Q15M PRN IV DECREASED GLUCOSE; Start 04/17/17 at 09:30 Glucagon (Glucagen) 1 mg Q15M PRN IM DECREASED GLUCOSE; Start 04/17/17 at 09:30 Glucose (Glutose) 15 gm Q15M PRN BUCCAL DECREASED GLUCOSE; Start 04/17/17 at 09 :30 Lorazepam (Ativan) 0.5 mg Q8H PRN PO ANXIETY Last administered on 04/19/17 01: 44; Admin Dose 0.5 MG; Start 04/17/17 at 13:30 Aspirin (Aspirin) 81 mg DAILY PO Last administered on 04/19/17 08:33; Admin Dose 81 MG; Start 04/18/17 at 09:00 Acetaminophen (Tylenol Tab) 650 mg Q6H PRN PO PAIN LEVEL 1-3 OR FEVER; Start at 13:30 Acetaminophen/ Hydrocodone Bitart ([place] (5/325)) 1 tab Q6H PRN PO PAIN LEVEL 4 -6 Last administered on 04/19/17 11:17; Admin Dose 1 TAB; Start 04/17/17 at 13: 30 Zolpidem Tartrate (Ambien) 5 mg QHS PRN PO INSOMNIA Last administered on 21:33; Admin Dose 5 MG; Start 04/17/17 at 13:30 Docusate Sodium (Colace) 100 mg Q12H PRN PO CONSTIPATION Last administered on 21:27; Admin Dose 100 MG; Start 04/17/17 at 13:30 Magnesium Hydroxide (Milk Of Mag) 30 ml DAILY PRN PO CONSTIPATION Last administered on 04/19/17 08:47; Admin Dose 30 ML; Start 04/17/17 at 13:30 Famotidine (Pepcid) 20 mg Q12 PO Last administered on 04/19/17 08:33; Admin Dose 20 MG; Start 04/17/17 at 21:00 Duloxetine HCl (Cymbalta) 60 mg DAILY PO Last administered on 04/19/17 08:32; Admin Dose 60 MG; Start 04/18/17 at 09:00 Insulin Glargine (Lantus) 68 unit QHS SC Last administered on 04/18/17 21:54; Admin Dose 68 UNIT; Start 04/17/17 at 21:00 Meloxicam (Mobic) 7.5 mg DAILY PO Last administered on 04/19/17 08:33; Admin Dose 7.5 MG; Start 04/18/17 at 09:00 Metformin HCl (Glucophage) 1,000 mg BID PO Last administered on 04/19/17 08:35 ; Admin Dose 1,000 MG; Start 04/17/17 at 21:00 Montelukast Sodium (Singulair) 10 mg QHS PO Last administered on 04/18/17 21: 27; Admin Dose 10 MG; Start 04/17/17 at 21:00 Salmeterol Xinafoate/ Fluticasone (Advair 500/50 Diskus) 1 inh BID INH Last administered on 04/19/17 08:32; Admin Dose 1 INH; Start 04/17/17 at 21:00 Diagnostic Test (Pha) (Accu-Chek) 1 ea 02 XX Last administered on 04/19/17 01: 44; Admin Dose 1 EA; Start 04/18/17 at 02:00 Ciprofloxacin (Cipro) 500 mg BID PO Last administered on 04/19/17 08:33; Admin Dose 500 MG; Start 04/17/17 at 14:00 Heparin Sodium (Porcine) (Heparin (5000 Units/0.5 ml)) 5,000 unit Q8 SC Last administered on 04/19/17 05:25; Admin Dose 5,000 UNIT; Start 04/17/17 at 19:30 Methylprednisolone Sodium Succinate (Solu-Medrol) 60 mg Q8 IV Last administered on 04/19/17 05:17; Admin Dose 60 MG; Start 04/18/17 at 14:00 Tiotropium [place] (Spiriva) 1 inh DAILY INH Last administered on 04/19/17 08: 32; Admin Dose 1 INH; Start 04/18/17 at 13:30 Theophylline (Armando-24) 200 mg QHS PO Last administered on 04/18/17 21:27; Admin Dose 200 MG; Start 04/18/17 at 21:00 Insulin Human NPH (Humulin N) 8 unit Q8 SC Last administered on 04/19/17 05:25 ; Admin Dose 8 UNIT; Start 04/18/17 at 14:00 CAMPBELL EWING MD Apr 19, 2017 11:48
[2017-04-19] MEDS: MONTELUKAST 10 MG TAB PO SCH (20:18)
[2017-04-19] MEDS: THEOPHYLLINE (SR) 200 MG CAPSR PO SCH (22:10)
[2017-04-19] MEDS: INSULIN GLARGINE [LANtus] 3 ML PEN SC SCH (22:14)
[2017-04-20] MEDS: ALBUTEROL/IPRATROPIUM (NEB) 3 ML AMP HHN SCH ×6 (01:22→21:32)
[2017-04-20 02:00] VITALS: BP 144/81; RESP 20
[2017-04-20] MEDS: ACCU-CHEK XX SCH ×4 (02:00→19:50)
[2017-04-20] MEDS: METHYLPREDNISOLONE 125 MG INJ IV SCH (06:00)
[2017-04-20] MEDS: NPH, HUMAN INSULIN ISOPHANE 3ML VIAL SC SCH ×3 (06:05→22:41)
[2017-04-20] MEDS: HEPARIN 5,000 UNIT/0.5 ML VIAL SC SCH ×3 (06:05→22:21)
[2017-04-20 07:21] VITALS: BP 142/70; RESP 18
[2017-04-20] MEDS: INSULIN ASPART [NOVOLOG] 3 ML PEN SC SCH ×6 (08:18→21:00)
[2017-04-20] MEDS: GLIMEPIRIDE 4 MG TAB PO SCH ×2 (08:21→17:15)
[2017-04-20] MEDS: ASPIRIN 81 MG TAB PO SCH (08:21)
[2017-04-20] MEDS: MELOXICAM 7.5 MG TAB PO SCH (08:22)
[2017-04-20] MEDS: CIPROFLOXACIN 500 MG TAB PO SCH ×2 (08:22→20:41)
[2017-04-20] MEDS: metFORMIN 500 MG TAB PO SCH ×2 (08:22→17:15)
[2017-04-20] MEDS: DULOXETINE 30 MG CAP DR PO SCH (08:22)
[2017-04-20] MEDS: FAMOTIDINE 20 MG TAB PO SCH ×2 (08:22→20:41)
[2017-04-20] MEDS: SALMETEROL/FLUTICASONE 500/50 INHA INH SCH ×2 (08:23→20:41)
[2017-04-20] MEDS: TIOTROPIUM 18 MCG CAPSULE INHA DEV INH SCH (08:23)
[2017-04-20] MEDS ORDERED: MAGNESIUM CITRATE 300 ML BTL PO ONE (09:30)
--- NOTE | 2017-04-20 12:28 | PN ---
Date/Time of Note Date/Time of Note DATE: 04/20/17 TIME: 12:26 Assessment/Plan VTE Prophylaxis VTE Prophylaxis Intervention: heparin Lines/Catheters IV [facility] (from [facility]): Saline Lock Assessment/Plan Problems: (1) Acute asthma exacerbation Status: Acute Comment: She is improving steadily. And then jacket changer to oral steroids as a support. In addition we will get her ambulating more. With any luck she should be able to be discharged tomorrow Qualifiers: Asthma severity: severe persistent Qualified Code: J45.51 - Severe persistent asthma with acute exacerbation (2) Asthma, severe persistent Status: Chronic Comment: Continue controller medication Qualifiers: Asthma complication type: with acute exacerbation Qualified Code: J45.51 - Severe persistent asthma with acute exacerbation (3) Type 2 diabetes mellitus treated with insulin Status: Chronic Comment: Adequate control. Expect control improved with relative decrease in total glucocorticoid exogenous dosing (4) Overweight (BMI 25.0-29.9) Status: Chronic Comment: Calorie restriction diet Subjective 24 Hr Interval Summary Free Text/Dictation Patient reports she is significantly better today. She is not at baseline but she is now starting to ambulate. Constitutional: no complaints Respiratory: no complaints Cardiovascular: no complaints Gastrointestinal: no complaints Exam/Review of Systems Vital Signs Vitals Vital Signs Date Time Temp Pulse Resp B/P Pulse Ox O2 Delivery O2 Flow Rate FiO2 04/20/17 08:32 102 20 98 Nasal Cannula 2.0 04/20/17 07:21 97.7 142/70 04/18/17 12:54 21 Intake and Output 04/19/17 04/19/17 04/20/17 15:00 23:00 07:00 Intake Total 700 ml 240 ml Balance 700 ml 240 ml Exam Constitutional: alert, oriented Neck: non-tender, supple Respiratory: clear to auscultation, diminished breath sounds Cardiovascular: nl pulses, regular rate and rhythm Results Result Diagram: 04/18/17 0547 04/18/17 0549 Results 24 hrs Laboratory Tests Test 04/19/17 14:05 04/19/17 17:13 04/19/17 20:16 04/19/17 22:09 Bedside Glucose 243 H 235 H 184 119 Test 04/19/17 23:18 04/20/17 05:54 04/20/17 08:13 04/20/17 10:16 Bedside Glucose 174 190 170 210 Test 04/20/17 11:57 Bedside Glucose 157 Medications Medications Current Medications Miscellaneous Information 1 ea NOTE XX ; Start 04/17/17 at 09:30 Glucose (Glutose) 15 gm Q15M PRN PO DECREASED GLUCOSE; Start 04/17/17 at 09:30 Glucose (Glutose) 22.5 gm Q15M PRN PO DECREASED GLUCOSE; Start 04/17/17 at 09: 30 Dextrose (D50w Syringe) 25 ml Q15M PRN IV DECREASED GLUCOSE; Start 04/17/17 at 09:30 Dextrose (D50w Syringe) 50 ml Q15M PRN IV DECREASED GLUCOSE; Start 04/17/17 at 09:30 Glucagon (Glucagen) 1 mg Q15M PRN IM DECREASED GLUCOSE; Start 04/17/17 at 09:30 Glucose (Glutose) 15 gm Q15M PRN BUCCAL DECREASED GLUCOSE; Start 04/17/17 at 09 :30 Lorazepam (Ativan) 0.5 mg Q8H PRN PO ANXIETY Last administered on 04/19/17 18: 29; Admin Dose 0.5 MG; Start 04/17/17 at 13:30 Aspirin (Aspirin) 81 mg DAILY PO Last administered on 04/20/17 08:21; Admin Dose 81 MG; Start 04/18/17 at 09:00 Acetaminophen (Tylenol Tab) 650 mg Q6H PRN PO PAIN LEVEL 1-3 OR FEVER Last administered on 04/19/17 15:36; Admin Dose 650 MG; Start 04/17/17 at 13:30 Acetaminophen/ Hydrocodone Bitart ([place] (5/325)) 1 tab Q6H PRN PO PAIN LEVEL 4 -6 Last administered on 04/19/17 17:15; Admin Dose 1 TAB; Start 04/17/17 at 13: 30 Zolpidem Tartrate (Ambien) 5 mg QHS PRN PO INSOMNIA Last administered on 21:33; Admin Dose 5 MG; Start 04/17/17 at 13:30 Docusate Sodium (Colace) 100 mg Q12H PRN PO CONSTIPATION Last administered on 21:27; Admin Dose 100 MG; Start 04/17/17 at 13:30 Magnesium Hydroxide (Milk Of Mag) 30 ml DAILY PRN PO CONSTIPATION Last administered on 04/19/17 08:47; Admin Dose 30 ML; Start 04/17/17 at 13:30 Famotidine (Pepcid) 20 mg Q12 PO Last administered on 04/20/17 08:22; Admin Dose 20 MG; Start 04/17/17 at 21:00 Duloxetine HCl (Cymbalta) 60 mg DAILY PO Last administered on 04/20/17 08:22; Admin Dose 60 MG; Start 04/18/17 at 09:00 Insulin Glargine (Lantus) 68 unit QHS SC Last administered on 04/19/17 22:14; Admin Dose 68 UNIT; Start 04/17/17 at 21:00 Meloxicam (Mobic) 7.5 mg DAILY PO Last administered on 04/20/17 08:22; Admin Dose 7.5 MG; Start 04/18/17 at 09:00 Metformin HCl (Glucophage) 1,000 mg BID PO Last administered on 04/20/17 08:22 ; Admin Dose 1,000 MG; Start 04/17/17 at 21:00 Montelukast Sodium (Singulair) 10 mg QHS PO Last administered on 04/19/17 20: 18; Admin Dose 10 MG; Start 04/17/17 at 21:00 Salmeterol Xinafoate/ Fluticasone (Advair 500/50 Diskus) 1 inh BID INH Last administered on 04/20/17 08:23; Admin Dose 1 INH; Start 04/17/17 at 21:00 Diagnostic Test (Pha) (Accu-Chek) 1 ea 02 XX Last administered on 04/19/17 01: 44; Admin Dose 1 EA; Start 04/18/17 at 02:00 Ciprofloxacin (Cipro) 500 mg BID PO Last administered on 04/20/17 08:22; Admin Dose 500 MG; Start 04/17/17 at 14:00 Heparin Sodium (Porcine) (Heparin (5000 Units/0.5 ml)) 5,000 unit Q8 SC Last administered on 04/20/17 06:05; Admin Dose 5,000 UNIT; Start 04/17/17 at 19:30 Methylprednisolone Sodium Succinate (Solu-Medrol) 60 mg Q8 IV Last administered on 04/20/17 06:00; Admin Dose 60 MG; Start 04/18/17 at 14:00 Tiotropium [place] (Spiriva) 1 inh DAILY INH Last administered on 04/20/17 08: 23; Admin Dose 1 INH; Start 04/18/17 at 13:30 Theophylline (Armando-24) 200 mg QHS PO Last administered on 04/19/17 22:10; Admin Dose 200 MG; Start 04/18/17 at 21:00 Insulin Human NPH (Humulin N) 8 unit Q8 SC Last administered on 04/20/17 06:05 ; Admin Dose 8 UNIT; Start 04/18/17 at 14:00 Sodium Biphosphate/ Sodium Phosphate (Fleet Enema) 133 ml ONCE PRN RI IF NO BM IN AM 04/20; Start 04/20/17 at 13:00; Stop 04/20/17 at 19:00 CAMPBELL EWING MD Apr 20, 2017 12:28
[2017-04-20] MEDS ORDERED: NA PHOSPHATE/BIPHOS 133 ML ENEMA PR PRN ×2 (13:00→22:30)
[2017-04-20 14:00] VITALS: BP 136/75; PULSE 103; RESP 18
[2017-04-20] MEDS: HYDROCODONE/APAP (5/325) TAB PO PRN (14:17)
[2017-04-20 14:38] VITALS: BP 141/69; RESP 18
[2017-04-20 19:26] VITALS: BP 142/77; RESP 20
[2017-04-20] MEDS: MONTELUKAST 10 MG TAB PO SCH (20:42)
[2017-04-20] MEDS: predniSONE 20 MG TAB PO SCH (20:43)
[2017-04-20] MEDS: INSULIN GLARGINE [LANtus] 3 ML PEN SC SCH (20:47)
[2017-04-20] MEDS: THEOPHYLLINE (SR) 200 MG CAPSR PO SCH (22:14)
[2017-04-21] MEDS: ALBUTEROL/IPRATROPIUM (NEB) 3 ML AMP HHN SCH ×6 (01:08→20:17)
[2017-04-21 02:00] VITALS: BP 130/67; RESP 18
[2017-04-21] MEDS: ACCU-CHEK XX SCH ×4 (02:00→20:07)
[2017-04-21] MEDS: NPH, HUMAN INSULIN ISOPHANE 3ML VIAL SC SCH (06:01)
[2017-04-21] MEDS: HEPARIN 5,000 UNIT/0.5 ML VIAL SC SCH ×3 (06:02→22:25)
[2017-04-21 07:32] VITALS: BP 148/86; RESP 24
[2017-04-21] MEDS: INSULIN ASPART [NOVOLOG] 3 ML PEN SC SCH ×6 (08:15→21:00)
[2017-04-21] MEDS: GLIMEPIRIDE 4 MG TAB PO SCH ×2 (08:16→17:28)
[2017-04-21] MEDS: SALMETEROL/FLUTICASONE 500/50 INHA INH SCH ×2 (08:16→20:49)
[2017-04-21] MEDS: metFORMIN 500 MG TAB PO SCH ×2 (08:16→17:29)
[2017-04-21] MEDS: CIPROFLOXACIN 500 MG TAB PO SCH ×2 (08:17→20:49)
[2017-04-21] MEDS: MELOXICAM 7.5 MG TAB PO SCH (08:17)
[2017-04-21] MEDS: TIOTROPIUM 18 MCG CAPSULE INHA DEV INH SCH (08:17)
[2017-04-21] MEDS: DULOXETINE 30 MG CAP DR PO SCH (08:17)
[2017-04-21] MEDS: predniSONE 20 MG TAB PO SCH ×2 (08:17→20:50)
[2017-04-21] MEDS: ASPIRIN 81 MG TAB PO SCH (08:17)
[2017-04-21] MEDS: FAMOTIDINE 20 MG TAB PO SCH ×2 (08:17→20:49)
--- NOTE | 2017-04-21 13:58 | PN ---
Date/Time of Note Date/Time of Note DATE: 04/21/17 TIME: 13:56 Assessment/Plan VTE Prophylaxis VTE Prophylaxis Intervention: heparin Lines/Catheters IV [facility] (from [facility] Saline Lock Urinary Cath still in place: No Assessment/Plan Problems: (1) Acute asthma exacerbation Status: Acute Comment: She is continuing to improve steadily however she has not at baseline. With any luck we should be able to have her in a position where we can discharge her home tomorrow on a tapering dose of steroids. Her other medications will remain the same. Qualifiers: Asthma severity: severe persistent Qualified Code: J45.51 - Severe persistent asthma with acute exacerbation (2) Type 2 diabetes mellitus treated with insulin Status: Chronic Comment: Adequate control especially as we have reduced the steroids we can reduce down on the extra insulin dosing (3) Overweight (BMI 25.0-29.9) Status: Chronic Comment: Calorie restriction diet (4) Migraine syndrome Status: Chronic Comment: Noted and controlled Subjective 24 Hr Interval Summary Free Text/Dictation Reports she is slowly improving. Still with some degree of cough has not ambulated extensively yet Constitutional: no complaints (No fevers chills or sweats) Respiratory: cough, shortness of breath (No further wheezing) Cardiovascular: no complaints Gastrointestinal: no complaints Genitourinary: no complaints Neurologic: no complaints Exam/Review of Systems Vital Signs Vitals Vital Signs Date Time Temp Pulse Resp B/P Pulse Ox O2 Delivery O2 Flow Rate FiO2 04/21/17 13:01 103 18 97 21 04/21/17 09:31 1.0 04/21/17 09:31 Nasal Cannula 04/21/17 07:32 98.0 148/86 Intake and Output 04/20/17 04/20/17 04/21/17 15:00 23:00 07:00 Intake Total 1500 ml 480 ml Balance 1500 ml 480 ml Exam Constitutional: alert, oriented Neck: non-tender, supple Respiratory: clear to auscultation, diminished breath sounds Cardiovascular: nl pulses, regular rate and rhythm Gastrointestinal: nl liver, spleen, non-tender, soft Results Result Diagram: 04/18/17 0547 04/18/17 0549 Results 24 hrs Laboratory Tests Test 04/20/17 14:03 04/20/17 17:16 04/20/17 20:37 04/20/17 22:11 Bedside Glucose 164 102 90 52 L Test 04/20/17 22:36 04/21/17 02:46 04/21/17 05:51 04/21/17 08:15 Bedside Glucose 91 141 101 114 Test 04/21/17 10:06 04/21/17 11:54 04/21/17 12:16 04/21/17 12:35 Bedside Glucose 104 59 L 97 126 Medications Medications Current Medications Miscellaneous Information 1 ea NOTE XX ; Start 04/17/17 at 09:30 Glucose (Glutose) 15 gm Q15M PRN PO DECREASED GLUCOSE; Start 04/17/17 at 09:30 Glucose (Glutose) 22.5 gm Q15M PRN PO DECREASED GLUCOSE; Start 04/17/17 at 09: 30 Dextrose (D50w Syringe) 25 ml Q15M PRN IV DECREASED GLUCOSE; Start 04/17/17 at 09:30 Dextrose (D50w Syringe) 50 ml Q15M PRN IV DECREASED GLUCOSE; Start 04/17/17 at 09:30 Glucagon (Glucagen) 1 mg Q15M PRN IM DECREASED GLUCOSE; Start 04/17/17 at 09:30 Glucose (Glutose) 15 gm Q15M PRN BUCCAL DECREASED GLUCOSE; Start 04/17/17 at 09 :30 Lorazepam (Ativan) 0.5 mg Q8H PRN PO ANXIETY Last administered on 04/19/17 18: 29; Admin Dose 0.5 MG; Start 04/17/17 at 13:30 Aspirin (Aspirin) 81 mg DAILY PO Last administered on 04/21/17 08:17; Admin Dose 81 MG; Start 04/18/17 at 09:00 Acetaminophen (Tylenol Tab) 650 mg Q6H PRN PO PAIN LEVEL 1-3 OR FEVER Last administered on 04/19/17 15:36; Admin Dose 650 MG; Start 04/17/17 at 13:30 Acetaminophen/ Hydrocodone Bitart ([place] (5/325)) 1 tab Q6H PRN PO PAIN LEVEL 4 -6 Last administered on 04/20/17 14:17; Admin Dose 1 TAB; Start 04/17/17 at 13: 30 Zolpidem Tartrate (Ambien) 5 mg QHS PRN PO INSOMNIA Last administered on 21:33; Admin Dose 5 MG; Start 04/17/17 at 13:30 Docusate Sodium (Colace) 100 mg Q12H PRN PO CONSTIPATION Last administered on 21:27; Admin Dose 100 MG; Start 04/17/17 at 13:30 Magnesium Hydroxide (Milk Of Mag) 30 ml DAILY PRN PO CONSTIPATION Last administered on 04/19/17 08:47; Admin Dose 30 ML; Start 04/17/17 at 13:30 Famotidine (Pepcid) 20 mg Q12 PO Last administered on 04/21/17 08:17; Admin Dose 20 MG; Start 04/17/17 at 21:00 Duloxetine HCl (Cymbalta) 60 mg DAILY PO Last administered on 04/21/17 08:17; Admin Dose 60 MG; Start 04/18/17 at 09:00 Insulin Glargine (Lantus) 68 unit QHS SC Last administered on 04/20/17 20:47; Admin Dose 68 UNIT; Start 04/17/17 at 21:00 Meloxicam (Mobic) 7.5 mg DAILY PO Last administered on 04/21/17 08:17; Admin Dose 7.5 MG; Start 04/18/17 at 09:00 Montelukast Sodium (Singulair) 10 mg QHS PO Last administered on 04/20/17 20: 42; Admin Dose 10 MG; Start 04/17/17 at 21:00 Salmeterol Xinafoate/ Fluticasone (Advair 500/50 Diskus) 1 inh BID INH Last administered on 04/21/17 08:16; Admin Dose 1 INH; Start 04/17/17 at 21:00 Diagnostic Test (Pha) (Accu-Chek) 1 ea 02 XX Last administered on 04/19/17 01: 44; Admin Dose 1 EA; Start 04/18/17 at 02:00 Ciprofloxacin (Cipro) 500 mg BID PO Last administered on 04/21/17 08:17; Admin Dose 500 MG; Start 04/17/17 at 14:00 Heparin Sodium (Porcine) (Heparin (5000 Units/0.5 ml)) 5,000 unit Q8 SC Last administered on 04/21/17 06:02; Admin Dose 5,000 UNIT; Start 04/17/17 at 19:30 Tiotropium [place] (Spiriva) 1 inh DAILY INH Last administered on 04/21/17 08: 17; Admin Dose 1 INH; Start 04/18/17 at 13:30 Theophylline (Armando-24) 200 mg QHS PO Last administered on 04/20/17 22:14; Admin Dose 200 MG; Start 04/18/17 at 21:00 Insulin Human NPH (Humulin N) 8 unit Q8 SC Last administered on 04/21/17 06:01 ; Admin Dose 8 UNIT; Start 04/18/17 at 14:00 Prednisone (Prednisone) 20 mg BID PO Last administered on 04/21/17 08:17; Admin Dose 20 MG; Start 04/20/17 at 21:00 CAMPBELL EWING MD Apr 21, 2017 13:58
[2017-04-21 14:00] VITALS: BP 146/81; PULSE 105; RESP 18
[2017-04-21 19:33] VITALS: BP_SYST 121; BP_SYST 129; BP_DIAS 57; BP_DIAS 66; RESP 20
[2017-04-21] MEDS: MONTELUKAST 10 MG TAB PO SCH (20:49)
[2017-04-21] MEDS: THEOPHYLLINE (SR) 200 MG CAPSR PO SCH (22:19)
[2017-04-21] MEDS: INSULIN GLARGINE [LANtus] 3 ML PEN SC SCH (22:43)
[2017-04-22] MEDS: ALBUTEROL/IPRATROPIUM (NEB) 3 ML AMP HHN SCH ×6 (01:43→22:18)
[2017-04-22 01:52] VITALS: BP 128/71; RESP 20
[2017-04-22] MEDS: ACCU-CHEK XX SCH ×4 (02:00→20:02)
[2017-04-22] MEDS: HEPARIN 5,000 UNIT/0.5 ML VIAL SC SCH ×3 (05:49→21:47)
[2017-04-22 05:50] VITALS: BP 121/57; PULSE 98; RESP 19
[2017-04-22] MEDS: ASPIRIN 81 MG TAB PO SCH (08:15)
[2017-04-22] MEDS: GLIMEPIRIDE 4 MG TAB PO SCH ×2 (08:15→17:24)
[2017-04-22] MEDS: DULOXETINE 30 MG CAP DR PO SCH (08:15)
[2017-04-22] MEDS: CIPROFLOXACIN 500 MG TAB PO SCH ×2 (08:15→21:31)
[2017-04-22] MEDS: metFORMIN 500 MG TAB PO SCH ×2 (08:15→17:22)
[2017-04-22] MEDS: MELOXICAM 7.5 MG TAB PO SCH (08:15)
[2017-04-22] MEDS: SALMETEROL/FLUTICASONE 500/50 INHA INH SCH ×2 (08:16→21:33)
[2017-04-22] MEDS: FAMOTIDINE 20 MG TAB PO SCH ×2 (08:16→21:31)
[2017-04-22] MEDS: predniSONE 20 MG TAB PO SCH ×2 (08:16→21:31)
[2017-04-22 08:20] VITALS: BP 130/80; RESP 16
[2017-04-22] MEDS: INSULIN ASPART [NOVOLOG] 3 ML PEN SC SCH ×6 (08:35→21:39)
[2017-04-22] MEDS: TIOTROPIUM 18 MCG CAPSULE INHA DEV INH SCH (09:00)
[2017-04-22 13:18] VITALS: BP 143/64; RESP 18
[2017-04-22] MEDS ORDERED: METHYLPREDNISOLONE 125 MG INJ IV ONE (14:00)
--- NOTE | 2017-04-22 14:00 | PN ---
Date/Time of Note Date/Time of Note DATE: 04/22/17 TIME: 13:57 Assessment/Plan VTE Prophylaxis VTE Prophylaxis Intervention: heparin Lines/Catheters IV Catheter Type (from [facility]): Saline Lock Urinary Cath still in place: No Assessment/Plan Problems: (1) Acute asthma exacerbation Status: Acute Comment: She is improved but she is not at a stable state. She has marked dyspnea on exertion with diaphoresis. We will give her an additional dose of IV Solu-Medrol; and some Mucomyst to break up the mucus. With any luck she should be able to be discharged first thing in the morning Qualifiers: Asthma severity: severe persistent Qualified Code: J45.51 - Severe persistent asthma with acute exacerbation (2) Type 2 diabetes mellitus treated with insulin Status: Chronic Comment: Adequate control. Please note the control is adequate in a controlled environment on a controlled medical regimen (3) Overweight (BMI 25.0-29.9) Status: Chronic Comment: Calorie restriction diet which is helping the sugars Subjective 24 Hr Interval Summary Free Text/Dictation Patient reports that her breathing is relatively static versus yesterday. She gets marked dyspnea with walking 100 feet; and also rather diaphoretic Constitutional: no complaints Respiratory: cough, shortness of breath, wheezing Cardiovascular: no complaints Gastrointestinal: no complaints Genitourinary: no complaints Exam/Review of Systems Vital Signs Vitals Vital Signs Date Time Temp Pulse Resp B/P Pulse Ox O2 Delivery O2 Flow Rate FiO2 04/22/17 13:18 98.0 111 18 143/64 97 04/22/17 12:37 21 04/22/17 05:50 Room Air 04/21/17 09:31 1.0 Intake and Output 04/21/17 04/21/17 04/22/17 15:00 23:00 07:00 Intake Total 1060 ml 300 ml Balance 1060 ml 300 ml Exam Constitutional: alert, oriented Respiratory: clear to auscultation, diminished breath sounds Cardiovascular: nl pulses, regular rate and rhythm Gastrointestinal: nl liver, spleen, non-tender, soft Results Result Diagram: 04/18/17 0547 04/18/17 0549 Results 24 hrs Laboratory Tests Test 04/21/17 14:02 04/21/17 17:28 04/21/17 20:00 04/21/17 22:21 Bedside Glucose 196 202 166 104 Test 04/22/17 08:11 04/22/17 10:03 04/22/17 12:07 Bedside Glucose 163 181 103 Medications Medications Current Medications Miscellaneous Information 1 ea NOTE XX ; Start 04/17/17 at 09:30 Glucose (Glutose) 15 gm Q15M PRN PO DECREASED GLUCOSE; Start 04/17/17 at 09:30 Glucose (Glutose) 22.5 gm Q15M PRN PO DECREASED GLUCOSE; Start 04/17/17 at 09: 30 Dextrose (D50w Syringe) 25 ml Q15M PRN IV DECREASED GLUCOSE; Start 04/17/17 at 09:30 Dextrose (D50w Syringe) 50 ml Q15M PRN IV DECREASED GLUCOSE; Start 04/17/17 at 09:30 Glucagon (Glucagen) 1 mg Q15M PRN IM DECREASED GLUCOSE; Start 04/17/17 at 09:30 Glucose (Glutose) 15 gm Q15M PRN BUCCAL DECREASED GLUCOSE; Start 04/17/17 at 09 :30 Lorazepam (Ativan) 0.5 mg Q8H PRN PO ANXIETY Last administered on 04/19/17 18: 29; Admin Dose 0.5 MG; Start 04/17/17 at 13:30 Aspirin (Aspirin) 81 mg DAILY PO Last administered on 04/22/17 08:15; Admin Dose 81 MG; Start 04/18/17 at 09:00 Acetaminophen (Tylenol Tab) 650 mg Q6H PRN PO PAIN LEVEL 1-3 OR FEVER Last administered on 04/19/17 15:36; Admin Dose 650 MG; Start 04/17/17 at 13:30 Acetaminophen/ Hydrocodone Bitart (Atkins (5/325)) 1 tab Q6H PRN PO PAIN LEVEL 4 -6 Last administered on 04/20/17 14:17; Admin Dose 1 TAB; Start 04/17/17 at 13: 30 Zolpidem Tartrate (Ambien) 5 mg QHS PRN PO INSOMNIA Last administered on 21:33; Admin Dose 5 MG; Start 04/17/17 at 13:30 Docusate Sodium (Colace) 100 mg Q12H PRN PO CONSTIPATION Last administered on 21:27; Admin Dose 100 MG; Start 04/17/17 at 13:30 Magnesium Hydroxide (Milk Of Mag) 30 ml DAILY PRN PO CONSTIPATION Last administered on 04/19/17 08:47; Admin Dose 30 ML; Start 04/17/17 at 13:30 Famotidine (Pepcid) 20 mg Q12 PO Last administered on 04/22/17 08:16; Admin Dose 20 MG; Start 04/17/17 at 21:00 Duloxetine HCl (Cymbalta) 60 mg DAILY PO Last administered on 04/22/17 08:15; Admin Dose 60 MG; Start 04/18/17 at 09:00 Meloxicam (Mobic) 7.5 mg DAILY PO Last administered on 04/22/17 08:15; Admin Dose 7.5 MG; Start 04/18/17 at 09:00 Montelukast Sodium (Singulair) 10 mg QHS PO Last administered on 04/21/17 20: 49; Admin Dose 10 MG; Start 04/17/17 at 21:00 Salmeterol Xinafoate/ Fluticasone (Advair 500/50 Diskus) 1 inh BID INH Last administered on 04/22/17 08:16; Admin Dose 1 INH; Start 04/17/17 at 21:00 Diagnostic Test (Pha) (Accu-Chek) 1 ea 02 XX Last administered on 04/19/17 01: 44; Admin Dose 1 EA; Start 04/18/17 at 02:00 Ciprofloxacin (Cipro) 500 mg BID PO Last administered on 04/22/17 08:15; Admin Dose 500 MG; Start 04/17/17 at 14:00; Stop 04/24/17 at 13:59 Heparin Sodium (Porcine) (Heparin (5000 Units/0.5 ml)) 5,000 unit Q8 SC Last administered on 04/22/17 05:49; Admin Dose 5,000 UNIT; Start 04/17/17 at 19:30 Tiotropium [place] (Spiriva) 1 inh DAILY INH Last administered on 04/22/17 09: 00; Admin Dose 1 INH; Start 04/18/17 at 13:30 Theophylline (Armando-24) 200 mg QHS PO Last administered on 04/21/17 22:19; Admin Dose 200 MG; Start 04/18/17 at 21:00 Prednisone (Prednisone) 20 mg BID PO Last administered on 04/22/17 08:16; Admin Dose 20 MG; Start 04/20/17 at 21:00 Insulin Glargine (Lantus) 50 unit QHS SC Last administered on 04/21/17t 22:43; Admin Dose 50 UNIT; Start 04/21/17 at 22:40 Acetylcysteine (Nac) 1,200 mg BID PO ; Start 04/22/17 at 14:00; Stop 04/25/17 at 13:59; Status UNV Methylprednisolone Sodium Succinate (Solu-Medrol) 125 mg ONCE ONCE IV ; Start 04/22/17 at 14:00; Stop 04/22/17 at 14:01; Status UNV CAMPBELL EWING MD Apr 22, 2017 13:59
[2017-04-22] MEDS: ACETYLCYSTEINE 600 MG CAP PO SCH ×2 (17:25→21:40)
[2017-04-22 20:24] VITALS: BP 135/70; RESP 18
[2017-04-22] MEDS: THEOPHYLLINE (SR) 200 MG CAPSR PO SCH (21:31)
[2017-04-22] MEDS: MONTELUKAST 10 MG TAB PO SCH (21:31)
[2017-04-22] MEDS: INSULIN GLARGINE [LANtus] 3 ML PEN SC SCH (21:39)
[2017-04-23] MEDS: ACCU-CHEK XX SCH ×2 (02:02→09:58)
[2017-04-23] MEDS: ALBUTEROL/IPRATROPIUM (NEB) 3 ML AMP HHN SCH ×4 (02:26→13:00)
[2017-04-23 02:32] VITALS: BP 119/57; RESP 18
[2017-04-23] MEDS: HEPARIN 5,000 UNIT/0.5 ML VIAL SC SCH (05:41)
[2017-04-23] MEDS ORDERED: LEVOFLOXACIN 500 MG TAB PO SCH (06:00)
[2017-04-23 07:01] VITALS: BP 128/75; RESP 18
[2017-04-23] MEDS: SALMETEROL/FLUTICASONE 500/50 INHA INH SCH (07:54)
[2017-04-23] MEDS: INSULIN ASPART [NOVOLOG] 3 ML PEN SC SCH ×3 (08:01→12:15)
--- NOTE | 2017-04-23 08:31 | PDOCDIS ---
Discharge Instructions DIAGNOSIS Discharge Diagnosis Acute exacerbation of asthma; asthma persistent moderate; diabetes mellitus type 2; obesity CONDITION Patient Condition: Fair HOME CARE INSTRUCTIONS: Special Diet: carb controlled ACTIVITY: Activity Restrictions: Slowly Increase Activity Do not operate Power Tool FOLLOW UP/APPOINTMENTS Follow-up Plan Dr. Cuellar-primary care in 2 weeks; Dr. Haywood-pulmonology in 1 week CAMPBELL CUELLAR MD Apr 23, 2017 08:31
[2017-04-23] MEDS ORDERED: TIOT18CA INH (08:34)
[2017-04-23] MEDS ORDERED: THEO200C3 PO (08:34)
[2017-04-23] MEDS ORDERED: ASPI81TA3 PO (08:34)
[2017-04-23] MEDS ORDERED: PRED20TA PO (08:34)
[2017-04-23] MEDS ORDERED: LEVO500T72 PO (08:34)
--- NOTE | 2017-04-23 08:36 | DS ---
Date/Time of Note Date/Time of Note DATE: 04/23/17 TIME: 08:35 Discharge Summary Admission/Discharge Info Admit Date/Time Apr 17, 2017 at 02:12 Discharge Date/Time 04/23/2017 Discharge Diagnosis Acute exacerbation of asthma; asthma persistent moderate; diabetes mellitus type 2; obesity Patient Condition: Fair Procedures CT scan chest/CTA Hx of Present Illness 56-year-old female with insulin treated diabetes mellitus type 2; asthma persistent severe chronically on steroids; overweight; lumbar disc disease etc. Patient been her usual state of health maintained with home nebulizer therapy. She began to have worsening dyspnea in the last 24 hours. This successfully rapidly to the point that the family called 911 to have her transported. Please note she is not a frequent visitor of the emergency room. In the emergency room she had negative imaging studies of the lungs but was quite tight. She is being admitted for treatment of severe exacerbation of her underlying asthma persistent severe Hospital Course 56-year-old female. She works in a [employer] informs me she has not been thoroughly diligent about wearing her mask. She came in with severe asthma exacerbation which broke very slowly. She has now steadily improved to the point where she is stable for discharge. She has fair rehabilitation potential she has no known chemical diseases she is not hazard to herself or others. Her blood sugar control allowing for the extra dosing of steroids was good. She is now discharged home in improved condition Home Meds Active Scripts Theophylline Anhydrous* (Armando-24*) 200 Mg Cap.sr.24h, 200 MG PO QHS for 30 Days Prov:NICHOLAS CUELLAR MD 04/23/17 Prednisone* (Prednisone*) 20 Mg Tab, 20 MG PO QAM for 10 Days, #10 TAB Temporarily to help clear breathing issue Prov:NICHOLAS CUELLAR MD 04/23/17 Aspirin (Aspirin) 81 Mg Chew, 81 MG PO DAILY for 90 Days, TAB Prov:NICHOLAS CUELLAR MD 04/23/17 Tiotropium [place]* (Spiriva*) 18 Mcg Cap.w.dev, 1 INH INH DAILY for 30 Days, 2 Refills Prov:NICHOLAS CUELLAR MD 04/23/17 Levofloxacin* (Levaquin*) 500 Mg Tablet, 500 MG PO DAILY@06 for 5 Days, TAB Prov:NICHOLAS CUELLAR MD 04/23/17 Reported Medications Insulin Aspart* (Novolog Insulin Pen*) 100 Unit/Ml Soln, 38 UNIT SC WITH BREAKFAST DINNE, EA 04/16/17 Duloxetine Hcl* (Duloxetine Hcl*) 60 Mg Capsule.dr, 60 MG PO DAILY, #30 CAP 04/16/17 Montelukast Sodium* (Montelukast Sodium*) 10 Mg Tablet, 10 MG PO QHS, #30 TAB 04/16/17 Meloxicam* (Meloxicam*) 7.5 Mg Tablet, 7.5 MG PO DAILY, #30 TAB 04/16/17 Prednisone* (Prednisone*) 5 Mg Tab, 5 MG PO DAILY, TAB 04/16/17 Budesonide-Formoterol Fumarate* (Symbicort*) 6 Gm Hfa.aer.ad 11/27/10 Metformin* (Glucophage*) 1,000 Mg Tablet 11/27/10 Glimepiride* (Amaryl*) 4 Mg Tablet 11/27/10 Insulin Glargine,Hum.rec.anlog (Lantus) 100 U/Ml Vial, 68 UNIT SQ QHS 11/27/10 Discontinued Reported Medications Exenatide* (Byetta*) 10 Mcg/0.04 Pen.injctr 11/27/10 Primary Care Provider Nicholas Cuellar MD Time spent on discharge: > 30 minutes Pending Labs Laboratory Tests Test 04/22/17 10:03 04/22/17 12:07 04/22/17 14:38 04/22/17 17:21 Bedside Glucose 181mg/dL (70-220) 103mg/dL (70-220) 210mg/dL (70-220) 190mg/dL (70-220) Test 04/22/17 19:59 04/22/17 21:35 04/23/17 01:39 04/23/17 07:50 Bedside Glucose 288mg/dL (70-220) 258mg/dL (70-220) 230mg/dL (70-220) 206mg/dL (70-220) NICHOLAS CUELLAR MD Apr 23, 2017 08:36
[2017-04-23] MEDS: ASPIRIN 81 MG TAB PO SCH (08:39)
[2017-04-23] MEDS: ACETYLCYSTEINE 600 MG CAP PO SCH (08:39)
[2017-04-23] MEDS: CIPROFLOXACIN 500 MG TAB PO SCH (08:40)
[2017-04-23] MEDS: metFORMIN 500 MG TAB PO SCH (08:40)
[2017-04-23] MEDS: TIOTROPIUM 18 MCG CAPSULE INHA DEV INH SCH (08:40)
[2017-04-23] MEDS: GLIMEPIRIDE 4 MG TAB PO SCH (08:40)
[2017-04-23] MEDS: predniSONE 20 MG TAB PO SCH (08:40)
[2017-04-23] MEDS: DULOXETINE 30 MG CAP DR PO SCH (08:40)
[2017-04-23] MEDS: MELOXICAM 7.5 MG TAB PO SCH (08:40)
[2017-04-23] MEDS: FAMOTIDINE 20 MG TAB PO SCH (08:40)
== END 2017-04-23 13:20 | disposition home or self-care (01) | DRG 203 ==
LOC: E/R 22:11 → MS3 04-17 02:12 → TEL 04-17 22:31 → MS2 04-19 18:52
PROVIDERS: ADMIT Internal Medicine; ATTEND Internal Medicine
DX: J45.41 Moderate persistent asthma with (acute) exacerbation (principal); E11.9 Type 2 diabetes mellitus without complications; K76.0 Fatty (change of) liver, not elsewhere classified; E66.9 Obesity, unspecified; G43.909 Migraine, unspecified, not intractable, without status migrainosus; M47.896 Other spondylosis, lumbar region; J30.9 Allergic rhinitis, unspecified; Z68.35 Body mass index [BMI] 35.0-35.9, adult; Z88.0 Allergy status to penicillin; Z79.4 Long term (current) use of insulin; Z79.51 Long term (current) use of inhaled steroids
CPT/HCPCS: 36415; 36600; 71010; 71275; 80053; 82803; 82962; 83036; 83880; 84484; 85025; 85378; 85610; 85730; 87040; 93005; 94640; 94644; 94660; 94664; 96372; 96374; 96375; J1644; J1815; J2930; J3475; J3480; J7030; J7512; Q9967

== ENCOUNTER 2017-05-29 20:28 | Inpatient (IN) | payer BC ==
[~2017-05-29] VITALS: Ht 167.6 cm; Wt 99.0 kg
[~2017-05-29 20:28] MED LIST changes: +ASPI81TA3 PO; +DULO60CA59 PO; -EXEN10PE; +LEVO500T72 PO; +MELO-109 PO; +MONT10TA24 PO; -MTF1000T; +MTF1000T PO; +NOVO3I SC; +PRED20TA PO; +PRED5 PO; +THEO200C3 PO; +TIOT18CA INH
[2017-05-29 20:33] VITALS: Ht 167.6 cm; Wt 99.0 kg
[2017-05-29] MEDS ORDERED: ALBUTEROL 0.083% (NEB) 2.5 MG/3 ML AMP HHN STA (21:07)
[2017-05-29] MEDS ORDERED: ASPIRIN 325 MG TAB PO STA (21:07)
[2017-05-29] MEDS ORDERED: GLIP-95 PO (21:19)
[2017-05-29] MEDS ORDERED: PRED1TAB2 PO (21:20)
[2017-05-29 21:21] LABS: BASOPHIL # 0.1 10^3/ul (0.0-0.1); BASOPHILS % 0.3 % (0.0-2.0); EOSINOPHILS # 0.6 10^3/ul (0.0-0.5); EOSINOPHILS % 3.2 % (0.0-7.0); HEMATOCRIT 44.6 % (37.0-47.0); HEMOGLOBIN 15.5 g/dl (12.0-16.0); LYMPHOCYTES # 2.8 10^3/ul (0.8-2.9); LYMPHOCYTES % 15.6 % (15.0-51.0); MEAN CORPUSCULAR HEMOGLOBIN 32.8 pg (29.0-33.0); MEAN CORPUSCULAR HGB CONC 34.8 g/dl (32.0-37.0); MEAN CORPUSCULAR VOLUME 94.5 fl (82.0-101.0); MEAN PLATELET VOLUME 8.9 fl (7.4-10.4); MONOCYTE # 0.6 10^3/ul (0.3-0.9); MONOCYTES % 3.4 % (0.0-11.0); NEUTROPHILS % 76.8 % (39.0-77.0); PLATELET COUNT 339 10^3/UL (140-415); RED BLOOD COUNT 4.72 10^6/ul (4.20-5.40); RED CELL DISTRIBUTION WIDTH 11.5 % (11.5-14.5)
[2017-05-29] MEDS ORDERED: ALBU90AE INHALATION (21:21)
[2017-05-29] MEDS ORDERED: IPRATROPIUM (NEB) 0.5 MG/2.5 ML AMP INH PRN (21:30)
[2017-05-29] MEDS ORDERED: LEVALBUTEROL (NEB) 1.25 MG/0.5 ML AMP INH PRN (21:30)
[2017-05-29] MEDS ORDERED: METHYLPREDNISOLONE 125 MG INJ IV ONE (21:30)
[2017-05-29] MEDS ORDERED: IPRATROPIUM (NEB) 0.5 MG/2.5 ML AMP HHN ONE (21:30)
[2017-05-29 21:39] LABS: AADO2 Arterial 94.5 mmHg (7.0-24.0); Arterial Base Excess -0.4 mmol/L (-3.0-3); Arterial COHb 0.1 % (0.0-3.0); Arterial HCO3 20.9 mmol/L (22.0-26.0); Arterial MetHb 0.2 % (0.0-1.5); Arterial Total Hemglobin 15.9 g/dl (12.0-18.0); MODE NASAL CANNULA
[2017-05-29 21:44] LABS: ANION GAP 19 (8-16); BLOOD UREA NITROGEN 15 mg/dl (7-20); CALCIUM 9.7 mg/dl (8.4-10.2); CARBON DIOXIDE 23 mmol/L (21-31); CHLORIDE 99 mmol/L (97-110); CREATININE 0.46 mg/dl (0.44-1.00); GLUCOSE 335 mg/dl (70-220); POTASSIUM 4.2 mmol/L (3.5-5.1); SODIUM 137 mmol/L (135-144)
--- NOTE | 2017-05-29 21:47 | ERA ---
ER Documentation Chief Complaint Date/Time DATE: 05/29/17 TIME: 21:39 Chief Complaint sob and cough HPI This 56-year-old female presents with cough and shortness of breath for the last couple of days. No fever and chills. She does have chest tightness across her entire upper chest on both sides. Mild nausea. Reviewed the patient 's EMR and see that she has severe persistent asthma and was admitted for this on her previous visit. ROS All systems reviewed and are negative except as per history of present illness. Medications Home Meds Active Scripts Theophylline Anhydrous* (Armando-24*) 200 Mg Cap.sr.24h, 200 MG PO QHS for 30 Days Prov:CAMPBELL EWING MD 04/23/17 Aspirin (Aspirin) 81 Mg Chew, 81 MG PO DAILY for 90 Days, TAB Prov:CAMPBELL EWING MD 04/23/17 Tiotropium [place]* (Spiriva*) 18 Mcg Cap.w.dev, 1 INH INH DAILY for 30 Days, 2 Refills Prov:ACMPBELL EWING MD 04/23/17 Reported Medications Albuterol Sulfate (Proair Respiclick) 90 Mcg Aer.pow.ba, 1 PUFF INHALATION Q4, # 1 BOTTLE 05/29/17 Prednisone* (Prednisone*) 1 Mg Tablet, 1 MG PO DAILY, TAB 05/29/17 Glipizide* (Glipizide*) 10 Mg Tablet, 10 MG PO AC BREAKFAST DINNER, TAB 05/29/17 Insulin Aspart* (Novolog Insulin Pen*) 100 Unit/Ml Soln, 38 UNIT SC WITH BREAKFAST DINNE, EA 04/16/17 Duloxetine Hcl* (Duloxetine Hcl*) 60 Mg Capsule.dr, 60 MG PO DAILY, #30 CAP 04/16/17 Montelukast Sodium* (Montelukast Sodium*) 10 Mg Tablet, 10 MG PO QHS, #30 TAB 04/16/17 Prednisone* (Prednisone*) 5 Mg Tab, 5 MG PO DAILY, TAB 04/16/17 Metformin* (Glucophage*) 1,000 Mg Tablet, 1000 MG PO QHS 11/27/10 Insulin Glargine,Hum.rec.anlog (Lantus) 100 U/Ml Vial, 68 UNIT SQ QHS 11/27/10 Discontinued Reported Medications Meloxicam* (Meloxicam*) 7.5 Mg Tablet, 7.5 MG PO DAILY, #30 TAB 04/16/17 Budesonide-Formoterol Fumarate* (Symbicort*) 6 Gm Hfa.aer.ad 11/27/10 Glimepiride* (Amaryl*) 4 Mg Tablet 11/27/10 Discontinued Scripts Prednisone* (Prednisone*) 20 Mg Tab, 20 MG PO QAM for 10 Days, #10 TAB Temporarily to help clear breathing issue Prov:CAMPBELL EWING MD 04/23/17 Levofloxacin* (Levaquin*) 500 Mg Tablet, 500 MG PO DAILY@06 for 5 Days, TAB Prov:CAMPBELL EWING MD 04/23/17 Allergies Allergies: Coded Allergies: No Known Allergies (Unverified Allergy, Mild, 05/29/17) PMhx/Soc History of Surgery: Yes (hysterectomy, c-sections) Anesthesia Reaction: No Hx Neurological Disorder: No Hx Respiratory Disorders: Yes (asthma, copd) Hx Cardiac Disorders: No Hx Psychiatric Problems: No Hx Miscellaneous Medical Probl: No Hx Alcohol Use: Yes Hx Substance Use: No Hx Tobacco Use: Yes Smoking Status: Former smoker Physical Exam Vitals Vital Signs Date Time Temp Pulse Resp B/P Pulse Ox O2 Delivery O2 Flow Rate FiO2 05/29/17 21:45 98 22 96 Nasal Cannula 3.0 05/29/17 21:45 3.0 05/29/17 21:11 Nasal Cannula 3 05/29/17 20:33 98.6 135 24 139/72 94 Physical Exam Const: [] Moderate distress, short of breath Head: Atraumatic Eyes: Normal Conjunctiva ENT: Normal External Ears, Nose and Mouth. Neck: Full range of motion..~ No meningismus. Resp: Decreased bibasilar breath sounds with no audible wheezing currently. Cardio: Regular rate and rhythm, no murmurs Abd: Soft, non tender, non distended. Normal bowel sounds Skin: No petechiae or rashes Back: No midline or flank tenderness Ext: No cyanosis, or edema Neur: Awake and alert Psych: Normal Mood and Affect Result Diagram: 05/31/17 0610 05/30/17 0950 Results 24 hrs Laboratory Tests Test 05/29/17 02:15 05/29/17 21:09 8/25/17 21:13 05/29/17 21:42 Lactic Acid Level 4.6mmol/L 1.2mmol/L Blood Gas Specimen Source Blood arterial Arterial Blood Date Drawn 05/29/2017 9:34:16 PM Arterial Blood pH (Temp corrected) 7.509 Arterial Blood pCO2 (Temp correct) 26.9mmhg Arterial Blood pO2 (Temp corrected) 87.8mmHG Arterial Blood HCO3 20.9mmol/L Arterial Blood Base Excess -0.4mmol/L Arterial Blood Oxygen Saturation 97.3mmHG Javad Test N/A Arterial Blood Gas Puncture Site Right Brachial Arterial Blood Carboxyhemoglobin 0.1% Arterial Blood Methemoglobin 0.2% Blood Gas A-a O2 Differential 94.5mmHg Oxyhemoglobin Percent 97.0% Total Hemoglobin 15.9g/dl Blood Gas Temperature 37.0C Blood Gas Modality NASAL CANNULA FiO2 30.0% Blood Gas Notified Whom MG Blood Gas Notified Time 05/29/2017 9:39:39 PM White Blood Count 18.010^3/ul Red Blood Count 4.7210^6/ul Hemoglobin 15.5g/dl Hematocrit 44.6% Mean Corpuscular Volume 94.5fl Mean Corpuscular Hemoglobin 32.8pg Mean Corpuscular Hemoglobin Concent 34.8g/dl Red Cell Distribution Width 11.5% Platelet Count 59296^3/UL Mean Platelet Volume 8.9fl Neutrophils % 76.8% Lymphocytes % 15.6% Monocytes % 3.4% Eosinophils % 3.2% Basophils % 0.3% Nucleated Red Blood Cells % 0.0/100WBC Neutrophils # (Manual) 13.810^3/ul Lymphocytes # 2.810^3/ul Monocytes # 0.610^3/ul Eosinophils # 0.610^3/ul Basophils # 0.110^3/ul Nucleated Red Blood Cells # 0.010^3/ul Sodium Level 137mmol/L Potassium Level 4.2mmol/L Chloride Level 99mmol/L Carbon Dioxide Level 23mmol/L Anion Gap 19 Blood Urea Nitrogen 15mg/dl Creatinine 0.46mg/dl Glucose Level 335mg/dl Calcium Level 9.7mg/dl Troponin I < 0.012ng/ml B-Type Natriuretic Peptide 41PG/ML Test 05/30/17 01:42 05/30/17 02:18 Lactic Acid Level 4.6mmol/L Urine Color STRAW Urine Clarity CLEAR Urine pH 5.0 Urine Specific [place] > 1.060 Urine Ketones 2+mg/dL Urine Nitrite NEGATIVEmg/dL Urine Bilirubin NEGATIVEmg/dL Urine Urobilinogen NEGATIVEmg/dL Urine Leukocyte Esterase NEGATIVELeu/ul Urine Microscopic RBC 1/HPF Urine Microscopic WBC 1/HPF Urine Squamous Epithelial Cells FEW/HPF Urine Bacteria FEW/HPF Urine Mucus FEW/HPF Urine Hemoglobin NEGATIVEmg/dL Urine Glucose 3+mg/dL Urine Total Protein NEGATIVEmg/dl Current Medications Medications (Trade) Dose Ordered Sig/Pilo Route PRN Reason Start Time Stop Time Status Last Admin Dose Admin Aspirin (Aspirin) 325 mg ONCE STAT PO 05/29/17 21:07 05/29/17 21:10 DC 05/29/17 21:51 Albuterol (Proventil 0.083% (Neb)) 15 mg ONCE STAT HHN 05/29/17 21:07 05/29/17 21:10 DC 05/29/17 21:44 Ipratropium [place] (Atrovent 0.02% (Neb)) 1 mg ONCE ONCE HHN 05/29/17 21:30 05/29/17 21:31 DC 05/29/17 21:44 Methylprednisolone Sodium Succinate 125 mg 125 mg ONCE ONCE IV 05/29/17 21:30 05/29/17 21:31 DC 05/29/17 21:51 Sodium Chloride (NS) 1,000 ml @ 1,000 mls/hr Q1H ONCE IV 05/29/17 22:30 05/30/17 07:04 DC 05/30/17 06:00 IV Flush 10 ml 10 ml STK-MED ONCE .ROUTE 05/29/17 22:21 05/30/17 04:24 DC Sodium Chloride 100 ml @ ud STK-MED ONCE .ROUTE 05/29/17 22:21 05/30/17 04:24 DC Iohexol (Omnipaque) 100 ml @ ud STK-MED ONCE .ROUTE 05/29/17 22:21 05/30/17 04:24 DC Iohexol (Omnipaque 350mg/ ml) 50 ml STK-MED ONCE .ROUTE 05/29/17 22:21 05/30/17 04:24 DC Nitroglycerin (Nitroglycerin (Sl Tab) 0.4 Mg) 25 tab STK-MED ONCE .ROUTE 05/30/17 01:23 05/30/17 04:27 DC Ketorolac Tromethamine 30 mg 30 mg STK-MED ONCE .ROUTE 05/30/17 01:23 05/30/17 04:27 DC Azithromycin 250 ml @ ud STK-MED ONCE .ROUTE 05/30/17 01:23 05/30/17 04:27 DC Ceftriaxone Sodium 50 ml @ ud STK-MED ONCE IVPB 05/30/17 01:23 05/30/17 04:27 DC Ceftriaxone Sodium (Rocephin) 50 ml @ 100 mls/hr Q24H IVPB 05/30/17 02:00 05/31/17 02:25 Azithromycin (Zithromax) 250 mg HS PO 05/30/17 02:00 05/30/17 20:46 Ipratropium [place] (Atrovent 0.02% (Neb)) 0.5 mg Q8H RESP THERAPY PRN INH COUGH, WHEEZE, SOB, CHEST PAIN 05/29/17 21:30 05/30/17 12:10 DC Levalbuterol (Xopenex Neb) 1.25 mg Q2H RESP THERAPY PRN INH COUGH,WHEEZE, SOB,CHEST PAIN 05/29/17 21:30 05/30/17 13:00 DC Procedures/MDM Severe Sepsis with possible bronchitis as source. Diagnosis of sepsis not made for 2 hours as she had a history of other medical conditions that could cause her symptoms, diagnosis of PE seemed likely, and no fever. Patient is given a large albuterol treatment of 15 mg as well as 1 mg of Atrovent. This had little effect on her symtoms. She was also given Solu-Medrol. This was based on her history of asthma and her thought this could be asthma. Her blood gas returned however more suspicious for pulmonary embolism with a alkalotic pH and low CO2 level of 26, making asthma an unlikely primary diagnosis. PaO2 is also less than should be expected for having the ABG during a breathing treatment on 100% oxygen. This is suspicious for possible pulmonary embolism patient is morbidly obese CTA was performed. Negative for PE, pneumonia or other obvious source. She was treated with Rocephin and Azithromycin and received 3 liters of normal saline. This will also help with hypoglycemia and lactic acidosis. Her condition impoved and she felt much better, I believe telemetry is appropriate rather than ICU. Spoke with Dr. Lei who will be admitting. CXR interp: I see no acute process. I see no widened mediastinum, no infiltrate , no mass, no pneumothorax, no fractures teletypesetter monitor interp: Sinus tachycardia with no other arrhythmia EKG interpretation: Sinus tachycardia rate of 115, left axis deviation, no ST or T-wave changes concerning for acute ischemia, normal intervals CTA interpretation: I see no acute process. I see no pulmonary embolism, no widened mediastinum, no infiltrate, no mass, no pneumothorax, no fractures My perfusion reassesment for Septic Shock: time 2255. Heart: Regular tachycardia with no murmurs Lungs: CTA bilat, no rales Cap refill: Just greater than 1 second Skin: No mottling Pulses: intact all four limbs distally Critical care time 50 minutes: This includes treatment of unstable vitals, severe sepsis, careful fluid administration, antibiotic selection, multiple visits to bedside to reasses status, chart review, discussion with patient and admitting doctor, this does not include billable procedures. Departure Diagnosis: Primary Impression: Severe sepsis Additional Impressions: Chest pain Respiratory distress Hyperglycemia due to type 2 diabetes mellitus Condition: Serious CAMPBELL GARCIA DO May 29, 2017 21:47
[2017-05-29 21:56] LABS: B-TYPE NATRIURETIC PEPTIDE 41 PG/ML (0-125)
[2017-05-29 21:57] LABS: TROPONIN-I < 0.012 ng/ml (0.00-0.12)
[2017-05-29] MEDS ORDERED: SOD CHLORIDE 0.9% 100 ML ONE (22:21)
[2017-05-29] MEDS ORDERED: IOHEXOL 350MG/ML 50 ML BTL ONE (22:21)
[2017-05-29] MEDS ORDERED: IOHEXOL 100 ML ONE (22:21)
[2017-05-29] MEDS ORDERED: SOD CHLORIDE 0.9% 1,000 ML IV ONE (22:30)
[2017-05-30] VITALS (8 sets, daily range): BP systolic 115–143; BP diastolic 58–64; PULSE 93–105; RESP 18–20
[2017-05-30] MEDS ORDERED: CEFTRIAXONE 1 GM/50 ML (PMX) 50 ML IVPB ONE (01:23)
[2017-05-30] MEDS ORDERED: AZITHROMYCIN 500MG/NS (PMX) 250 ML ONE (01:23)
[2017-05-30] MEDS ORDERED: NITROGLYCERIN (SL) 0.4 MG TAB ONE (01:23)
[2017-05-30] MEDS ORDERED: KETOROLAC 30 MG INJ ONE (01:23)
[2017-05-30] MEDS: AZITHROMYCIN 250 MG TAB PO SCH ×2 (02:00→20:46)
[2017-05-30] MEDS: CEFTRIAXONE 1 GM/NS 50 ML IVPB SCH (02:00)
--- NOTE | 2017-05-30 04:24 | RADRPT ---
PROCEDURE: CHEST - 1 VIEW CLINICAL INDICATION: 56-year-old female with chest pain. TECHNIQUE: A single frontal AP upright portable view of the chest was performed. The images were reviewed on a PACS workstation. COMPARISON: Chest x-ray April 16, 2017. FINDINGS: The cardiomediastinal silhouette is within normal limits and without significant interval change. T here is mild elevation of the left hemidiaphragm. There is no evidence for an infiltrate. There is no evidence for congestive heart failure. There is no evidence for pneumothorax. The osseous struct ures are intact. IMPRESSION: No evidence for active cardiopulmonary disease. .Yoshi Griffith MD, MD Date Time Electronically viewed and signed by .Yoshi Griffith MD, on 05/29/2017 22:32 .[place]/
--- NOTE | 2017-05-30 04:25 | RADRPT ---
AMENDMENT: 06/07/2017 12:34:54 AM Layla Cooper M.D Technique: CT pulmonary angiogram of the chest was performed. Sagittal and coronal re-formations were construc anni. 3-D post processing was performed and maximum intensity projection images were reconstructed o n PACS. One or more of the following dose reduction techniques were used: Automated exposure control. Adjustment of the mA and/or kV according to patient size. Use of iterative reconstruction technique. PROCEDURE: CT ANGIOGRAM CHEST, PULMONARY EMBOLISM PROTOCOL: CLINICAL INDICATION: 56 years of age, female, shortness of breath and tachycardia. Evaluate for PE .. COMPARISON: None available. TECHNIQUE: Image acquisition by series (and radiation doses in CTDI vol): 16.9 and 18.6 mGy. Estimated cumulative dose or total [id number] (DLP) is: 711 mGy-cm. Intravenous Contrast Medium Administered: 120 mL of Omnipaque 350 Cardiac Gating: None. FINDINGS: CARDIOVASCULAR: Diagnostic quality: Contrast opacification of the pulmonary arterial circulation is adequate for ass essment of pulmonary embolism. Study is not significantly limited by respiratory motion artifact. Pulmonary arteries: No filling defects to suggest pulmonary embolism to the level of the subsegmenta l branches of the pulmonary arteries. Not enlarged. Heart: No interventricular septal deviation. Normal in size. Mild coronary artery calcification ady g LAD No significant valvular calcification. Pericardium: No pericardial effusion. Thoracic aorta: No significant abnormality. Normal cervical branching. REMAINING CHEST: Medical devices: None. Thyroid: Normal. Lymph nodes: Small mediastinal and bilateral hilar lymph nodes are likely reactive. Other mediastinal structures: No significant abnormality. Lung parenchyma: There is a 0.5 cm subpleural pulmonary nodule in the left lower lobe (3/132). Lungs are otherwise clear. Airways: No significant abnormality. Pleura: No significant abnormality. Chest wall: No significant abnormality. Upper abdomen: No significant abnormality. Musculoskeletal: Mild degenerative changes in spine. No suspicious bone lesions. IMPRESSION: Negative for evidence of acute PE. 0.5 cm left lower lobe pulmonary nodule. In a low risk patient, no follow up imaging is required pe r 2017 Fleischner society guidelines. RPTAT: HCTS Ginette Cooper, Physician Date Time Electronically viewed and signed by Ginette Cooper, Physician on 06/07/2017 00:36 CS/
[2017-05-30] MEDS ORDERED: SOD CHLORIDE 0.9% 1,000 ML IV SCH (05:30)
[2017-05-30 07:58] LABS: ADD UMIC NO; UR ASCORBIC ACID NEGATIVE (NEGATIVE); UR BACTERIA FEW /HPF (NONE SEEN); UR BILIRUBIN (Dip) NEGATIVE (NEGATIVE); UR BLOOD (Dip) NEGATIVE (NEGATIVE); UR CLARITY CLEAR (CLEAR); UR COLOR STRAW (YELLOW); UR GLUCOSE (Dip) 3+ mg/dL (NEGATIVE); UR KETONES (Dip) 2+ mg/dL (NEGATIVE); UR LEUKOCYTE ESTERASE (Dip) NEGATIVE Leu/ul (NEGATIVE); UR MUCUS FEW /HPF (NONE SEEN); UR NITRITE (Dip) NEGATIVE (NEGATIVE); UR RBC 1 /HPF (0-5); UR SPECIFIC GRAVITY (Dip) > 1.060 (1.003-1.030); UR SQUAMOUS EPITHELIAL CELL FEW /HPF (FEW); UR TOTAL PROTEIN (Dip) NEGATIVE (NEGATIVE); UR UROBILINOGEN (Dip) NEGATIVE (NEGATIVE)
[2017-05-30] MEDS ORDERED: IPRATROPIUM (NEB) 0.5 MG/2.5 ML AMP INH PRN (08:00)
[2017-05-30] MEDS ORDERED: LEVALBUTEROL (NEB) 1.25 MG/0.5 ML AMP INH PRN (08:00)
[2017-05-30] MEDS ORDERED: GLUCAGON 1 MG INJ IM PRN (08:30)
[2017-05-30] MEDS ORDERED: DEXTROSE 50% 50 ML SYRINGE IV PRN ×2 (08:30)
[2017-05-30] MEDS ORDERED: GLUCOSE GEL 15 GRAM TUBE PO PRN ×2 (08:30)
[2017-05-30] MEDS ORDERED: GLUCOSE GEL 15 GRAM TUBE BUCCAL PRN (08:30)
[2017-05-30] MEDS ORDERED: METHYLPREDNISOLONE 40 MG INJ IV SCH (09:00)
[2017-05-30] MEDS: NPH, HUMAN INSULIN ISOPHANE 3ML VIAL SC SCH (09:33)
[2017-05-30] MEDS: INSULIN ASPART [NOVOLOG] 3 ML PEN SC SCH ×6 (09:34→20:52)
[2017-05-30] MEDS: MONTELUKAST 10 MG TAB PO SCH (09:35)
[2017-05-30] MEDS: DULOXETINE 30 MG CAP DR PO SCH (09:35)
[2017-05-30] MEDS: ASPIRIN 81 MG TAB PO SCH (09:35)
[2017-05-30] MEDS: metFORMIN 500 MG TAB PO SCH ×2 (09:36→17:28)
[2017-05-30 10:12] LABS: BASOPHILS % 0.2 % (0.0-2.0); EOSINOPHILS % 0.2 % (0.0-7.0); HEMATOCRIT 39.4 % (37.0-47.0); HEMOGLOBIN 13.2 g/dl (12.0-16.0); LYMPHOCYTES # 1.4 10^3/ul (0.8-2.9); LYMPHOCYTES % 12.6 % (15.0-51.0); MEAN CORPUSCULAR HEMOGLOBIN 32.8 pg (29.0-33.0); MEAN CORPUSCULAR HGB CONC 33.5 g/dl (32.0-37.0); MEAN CORPUSCULAR VOLUME 97.8 fl (82.0-101.0); MEAN PLATELET VOLUME 9.2 fl (7.4-10.4); MONOCYTE # 0.2 10^3/ul (0.3-0.9); MONOCYTES % 1.3 % (0.0-11.0); NEUTROPHILS % 85.1 % (39.0-77.0); PLATELET COUNT 281 10^3/UL (140-415); RED BLOOD COUNT 4.03 10^6/ul (4.20-5.40); RED CELL DISTRIBUTION WIDTH 11.9 % (11.5-14.5); WHITE BLOOD COUNT 11.4 10^3/ul (4.8-10.8)
[2017-05-30 10:25] LABS: ALANINE AMINOTRANSFERASE 48 IU/L (13-69); ALBUMIN 3.5 g/dl (3.3-4.9); ALBUMIN/GLOBULIN RATIO 1.34; ALKALINE PHOSPHATASE 79 IU/L (42-121); ANION GAP 18 (8-16); ASPARTATE AMINO TRANSFERASE 19 IU/L (15-46); BILIRUBIN,INDIRECT 0.3 mg/dl (0-1.1); BILIRUBIN,TOTAL 0.3 mg/dl (0.2-1.3); BLOOD UREA NITROGEN 10 mg/dl (7-20); CALCIUM 8.3 mg/dl (8.4-10.2); CARBON DIOXIDE 24 mmol/L (21-31); CHLORIDE 106 mmol/L (97-110); CHOLESTEROL 170 mg/dl (100-200); CREATININE 0.48 mg/dl (0.44-1.00); HDL CHOLESTEROL 55 mg/dl (37-92); POTASSIUM 4.8 mmol/L (3.5-5.1); SODIUM 143 mmol/L (135-144); TOTAL PROTEIN 6.1 g/dl (6.1-8.1); TRIGLYCERIDES 83 mg/dl (0-149)
[2017-05-30 10:32] LABS: GLUCOSE 423 mg/dl (70-220)
[2017-05-30 10:39] LABS: TROPONIN-I < 0.012 ng/ml (0.00-0.12)
--- NOTE | 2017-05-30 12:26 | HP ---
Date/Time of Note Date/Time of Note DATE: 05/30/17 TIME: 12:09 Assessment/Plan VTE Prophylaxis VTE Prophylaxis Intervention: ambulation, SCD's Lines/Catheters IV Catheter Type (from Nrsg): Peripheral IV Assessment/Plan Problems: (1) Shortness of breath Status: Acute Comment: Acute onset last night. Second episode following episode last month. Per patient, physical exam, and ABG, does not seem like asthma. Have pt. on solu-medrol 40 mg IV daily, breathing treatments w/ xopenex and atrovent, O2 by NC. CT-PA was (-). Continue IV rocephin and po azithromycin although no evidence pneumonia. Will obtain ECHO and pulmonary consultation. (2) Chest tightness Status: Acute Comment: Acute onset last night. Second episode following episode last month. Per patient, physical exam, and ABG, does not seem like asthma. Have pt. on solu-medrol 40 mg IV daily, breathing treatments w/ xopenex and atrovent, O2 by NC. CT-PA was (-). Continue IV rocephin and po azithromycin although no evidence pneumonia. Will obtain ECHO and pulmonary consultation. Monitor troponins but have been negative so far. (3) Hypoxia Status: Acute Comment: Acute onset last night. Second episode following episode last month. Per patient, physical exam, and ABG, does not seem like asthma. Have pt. on solu-medrol 40 mg IV daily, breathing treatments w/ xopenex and atrovent, O2 by NC. CT-PA was (-). Continue IV rocephin and po azithromycin although no evidence pneumonia. Will obtain ECHO and pulmonary consultation. (4) Asthma, severe persistent Status: Chronic Comment: Cont. medrol, xopenex, atrovent but does not seem like asthma clinically. Defer to pulmonary. (5) Elevated lactic acid level Status: Acute Comment: Initially was normal, then significantly elevated. Not certain if this is real value. Will recheck and try to respond accordingly. (6) Type 2 diabetes mellitus treated with insulin Status: Chronic Comment: Carb controlled diet. Lantus 40 qhs, Novolog 20 qac, NPH 40 units w/ solumedrol in am. Will follow and titrate insulin to goal BG values. Not controlled at home. HPI/ROS Admit Date/Time Admit Date/Time May 30, 2017 at 04:45 Hx of Present Illness 56 y/o H F s/p recent admission to [facility] for hypoxic episode and with h/o severe persistent asthma and T2DM in [facility] at home until yesterday afternoon. Took a lukewarm shower and then a nap. When she awoke, she found she was having trouble breathing. [place] tight across her chest with pressure. Trouble catching her breath. Despite similarities in description, she reports that this does not feel like asthma. Reports that with asthma exacerbations she is wheezing and today she is not wheezing. Called and was told to go to ER. In ER had ABG showing resp. alkalosis w/ low pCO2 and low pO2. Had (-) CTPA. No obvious etiology for her symptoms. Admitted to tele. ROS Constitutional: no complaints Eyes: no complaints ENT: no complaints Respiratory: cough, pain, shortness of breath Cardiovascular: chest pain, edema (including face, fingers, and toes) Gastrointestinal: no complaints Genitourinary: no complaints Musculoskeletal: no complaints Neurologic: no complaints PMH/Family/Social Past Medical History Medical History: diabetes, other (severe persistent asthma, NAFLD, migraines, lumbar disk disease) Past Surgical History Past Surgical Hx: other ( 3; status post GUNJAN with unilateral salpingo -oophorectomy 2005; status post unilateral salpingo-oophorectomy 2010; status post left hand trigger finger release;) Family History Significant Family History: asthma, heart disease, diabetes, hypertension, other (migraines) Social History Born in [place], lives lived in [facility] for 33 years, she lives with her domestic partner and children, she works for [employer] Alcohol Use: none Smoking Status: Former smoker Drug Use: none Exam/Review of Systems Vital Signs Vitals VS - Last 72 Hours, by Label Date Time Temp Pulse Resp B/P Pulse Ox O2 Delivery O2 Flow Rate FiO2 05/30/17 08:00 Nasal Cannula 5.0 05/30/17 08:00 101 05/30/17 04:55 98.4 105 18 115/58 97 Nasal Cannula 2.0 05/29/17 21:45 98 22 96 Nasal Cannula 3.0 05/29/17 21:45 3.0 05/29/17 21:11 Nasal Cannula 3 05/29/17 20:33 98.6 135 24 139/72 94 Vital Signs Date Time Temp Pulse Resp B/P Pulse Ox O2 Delivery O2 Flow Rate FiO2 05/30/17 08:00 Nasal Cannula 5.0 05/30/17 08:00 101 05/30/17 04:55 98.4 18 115/58 97 Intake and Output 05/29/17 05/29/17 05/30/17 14:59 22:59 06:59 Intake Total 240 ml Balance 240 ml Exam Constitutional: alert, oriented, other (obese) Psych: nl mood/affect, no complaints Eyes: EOMI, PERRL, nl conjunctiva, nl lids, nl sclera ENMT: mucosa pink and moist, nl external ears & nose Neck: non-tender, supple, No bruits, No masses, No thyromegaly Respiratory: clear to auscultation, normal air movement Cardiovascular: nl pulses, regular rate and rhythm, No edema, No murmurs/extra sounds, No rub Gastrointestinal: bowel sounds, nl liver, spleen, non-tender, soft, No mass, No rebound or guarding Musculoskeletal: nl extremities to inspection Extremities: normal pulses, No clubbing, No cyanosis, No edema Neurological: BENDING PRESS OPERATOR II-XII intact, nl mental status, nl speech, nl strength Labs Result Diagram: 05/30/1750 05/30/17 0950 Medications Medications Current Medications Sodium Chloride (NS) 1,000 ml @ 100 mls/hr Q10H IV Last administered on 06:00; Admin Dose 100 MLS/HR; Start 05/30/17 at 05:30 Duloxetine HCl (Cymbalta) 60 mg DAILY PO Last administered on 05/30/17 09:35; Admin Dose 60 MG; Start 05/30/17 at 09:00 Aspirin (Aspirin) 81 mg DAILY PO Last administered on 05/30/17 09:35; Admin Dose 81 MG; Start 05/30/17 at 09:00 Montelukast Sodium (Singulair) 10 mg DAILY PO Last administered on 05/30/17 09 :35; Admin Dose 10 MG; Start 05/30/17 at 09:00 Methylprednisolone Sodium Succinate 40 mg 40 mg DAILY IV Last administered on 09:31; Admin Dose 40 MG; Start 05/30/17 at 09:00 Ceftriaxone Sodium (Rocephin) 50 ml @ 100 mls/hr Q24H IVPB ; Start 05/30/17 at 02:00 Azithromycin (Zithromax) 250 mg HS PO ; Start 05/30/17 at 02:00 Insulin Glargine (Lantus) 40 unit HS SC ; Start 05/30/17 at 21:00 Insulin Human NPH (Humulin N) 40 unit DAILY SC Last administered on 05/30/17t 09:33; Admin Dose 40 UNIT; Start 05/30/17 at 09:00 Miscellaneous Information 1 ea NOTE XX ; Start 05/30/17 at 08:30 Glucose (Glutose) 15 gm Q15M PRN PO DECREASED GLUCOSE; Start 05/30/17 at 08:30 Glucose (Glutose) 22.5 gm Q15M PRN PO DECREASED GLUCOSE; Start 05/30/17 at 08: 30 Dextrose (D50w Syringe) 25 ml Q15M PRN IV DECREASED GLUCOSE; Start 05/30/17 at 08:30 Dextrose (D50w Syringe) 50 ml Q15M PRN IV DECREASED GLUCOSE; Start 05/30/17 at 08:30 Glucagon (Glucagen) 1 mg Q15M PRN IM DECREASED GLUCOSE; Start 05/30/17 at 08:30 Glucose (Glutose) 15 gm Q15M PRN BUCCAL DECREASED GLUCOSE; Start 05/30/17 at 08 :30 Diagnostic Test (Pha) (Accu-Chek) 1 ea 02 XX ; Start 05/31/17 at 02:00 RAZIA HADLEY MD May 30, 2017 12:21
[2017-05-30] MEDS ORDERED: LEVALBUTEROL (NEB) 1.25 MG/0.5 ML AMP HHN PRN (12:30)
[2017-05-30] MEDS: LEVALBUTEROL (NEB) 1.25 MG/0.5 ML AMP INH SCH ×2 (12:34→17:00)
[2017-05-30] MEDS ORDERED: IPRATROPIUM (NEB) 0.5 MG/2.5 ML AMP INH SCH (13:00)
--- NOTE | 2017-05-30 15:35 | CONS ---
Date/Time of Note Date/Time of Note DATE: 05/30/17 TIME: 15:23 Assessment/Plan Assessment/Plan Additional Assessment/Plan IMP: 1. Acute Asthma Exacerbation: with associated mild hypoxemia (A-a) O2 gradient 92 with no clear precipitating event. 2. Lactic Acidosis--due to #1 3. LE edema--likely due to IVF's and retirement CS 4. DM RECS: 1. d/c IVF 2. Lasix 3. Duo nebs Q4 hours 4. CS --with plans to taper 5. Macrolide given immune modulatory and antiinflammatory effects 6. Will obtain IgE and IgG/IgE for aspergillus--as work-up for ABPA Consultation Date/Type/Reason Admit Date/Time May 30, 2017 at 04:45 Hx of Present Illness This is 56-year-old female with a history of severe persistent asthma on chronic systemic corticosteroids s/p numerous prior exacerbations who presents with worsening dyspnea with findings c/w an acute asthma exacerbation. Constitutional: no complaints Eyes: no complaints ENT: no complaints Respiratory: cough, pain, shortness of breath Cardiovascular: chest pain, edema (including face, fingers, and toes) Gastrointestinal: no complaints Genitourinary: no complaints Musculoskeletal: no complaints Neurologic: no complaints Lymphatic: lymphadema Psychological: nl mood/affect, no complaints Past Medical History Medical History: diabetes, other (severe persistent asthma, NAFLD, migraines, lumbar disk disease) Past Surgical History sinus surgery Past Surgical Hx: other ( 3; status post GUNJAN with unilateral salpingo -oophorectomy 2005; status post unilateral salpingo-oophorectomy 2010; status post left hand trigger finger release;) Family History Significant Family History: asthma Social History Alcohol Use: none Smoking Status: Former smoker Drug Use: none Exam/Review of Systems Vital Signs Vitals Vital Signs Date Time Temp Pulse Resp B/P Pulse Ox O2 Delivery O2 Flow Rate FiO2 05/30/17 12:34 94 20 94 Nasal Cannula 5.0 05/30/17 12:10 98.0 143/63 Intake and Output 05/29/17 05/29/17 05/30/17 15:00 23:00 07:00 Intake Total 240 ml Balance 240 ml Exam Constitutional: alert, oriented Psych: no complaints Head: atraumatic, normocephalic Eyes: EOMI, nl conjunctiva, nl sclera ENMT: mucosa pink and moist, nl external ears & nose, nl lips & teeth, nl nasal mucosa & septum Neck: non-tender, supple Respiratory: clear to auscultation, congested cough Cardiovascular: nl pulses, regular rate and rhythm Gastrointestinal: nl liver, spleen, non-tender, soft Musculoskeletal: nl extremities to inspection Extremities: edema, normal pulses Neurological: REGIONAL TRAINING MANAGER II-XII intact, nl mental status, nl speech, nl strength Results Result Diagram: 05/30/17 0950 05/30/17 0950 Results 24 hrs Laboratory Tests Test 05/29/17 21:09 05/29/17 21:13 05/29/17 21:42 05/30/17 01:42 Blood Gas Specimen Source Blood arterial Arterial Blood Date Drawn 05/29/2017 9:34:16 PM Arterial Blood pH (Temp corrected) 7.509 H Arterial Blood pCO2 (Temp correct) 26.9 L Arterial Blood pO2 (Temp corrected) 87.8 Arterial Blood HCO3 20.9 L Arterial Blood Base Excess -0.4 Arterial Blood Oxygen Saturation 97.3 Javad Test N/A Arterial Blood Gas Puncture Site Right Brachial Arterial Blood Carboxyhemoglobin 0.1 Arterial Blood Methemoglobin 0.2 Blood Gas A-a O2 Differential 94.5 H Oxyhemoglobin Percent 97.0 Total Hemoglobin 15.9 Blood Gas Temperature 37.0 Blood Gas Modality NASAL CANNULA FiO2 30.0 Blood Gas Notified Whom MG Blood Gas Notified Time 05/29/2017 9:39:39 PM White Blood Count 18.0 #H Red Blood Count 4.72 # Hemoglobin 15.5 Hematocrit 44.6 Mean Corpuscular Volume 94.5 Mean Corpuscular Hemoglobin 32.8 Mean Corpuscular Hemoglobin Concent 34.8 Red Cell Distribution Width 11.5 Platelet Count 339 # Mean Platelet Volume 8.9 Neutrophils % 76.8 Lymphocytes % 15.6 Monocytes % 3.4 Eosinophils % 3.2 Basophils % 0.3 Nucleated Red Blood Cells % 0.0 Neutrophils # (Manual) 13.8 H Lymphocytes # 2.8 Monocytes # 0.6 Eosinophils # 0.6 H Basophils # 0.1 Nucleated Red Blood Cells # 0.0 Sodium Level 137 Potassium Level 4.2 Chloride Level 99 Carbon Dioxide Level 23 Anion Gap 19 H Blood Urea Nitrogen 15 Creatinine 0.46 Glucose Level 335 H Calcium Level 9.7 Troponin I < 0.012 B-Type Natriuretic Peptide 41 Lactic Acid Level 1.2 4.6 *H Test 05/30/17 02:18 05/30/17 08:24 05/30/17 09:50 05/30/17 12:47 Urine Color STRAW Urine Clarity CLEAR Urine pH 5.0 Urine Specific Standard > 1.060 H Urine Ketones 2+ H Urine Nitrite NEGATIVE Urine Bilirubin NEGATIVE Urine Urobilinogen NEGATIVE Urine Leukocyte Esterase NEGATIVE Urine Microscopic RBC 1 Urine Microscopic WBC 1 Urine Squamous Epithelial Cells FEW Urine Bacteria FEW A Urine Mucus FEW A Urine Hemoglobin NEGATIVE Urine Glucose 3+ H Urine Total Protein NEGATIVE Bedside Glucose 371 H 282 H White Blood Count 11.4 #H Red Blood Count 4.03 L Hemoglobin 13.2 Hematocrit 39.4 Mean Corpuscular Volume 97.8 Mean Corpuscular Hemoglobin 32.8 Mean Corpuscular Hemoglobin Concent 33.5 Red Cell Distribution Width 11.9 Platelet Count 281 Mean Platelet Volume 9.2 Neutrophils % 85.1 H Lymphocytes % 12.6 L Monocytes % 1.3 Eosinophils % 0.2 Basophils % 0.2 Nucleated Red Blood Cells % 0.0 Neutrophils # (Manual) 9.7 H Lymphocytes # 1.4 Monocytes # 0.2 L Eosinophils # 0.0 Basophils # 0.0 Nucleated Red Blood Cells # 0.0 Sodium Level 143 Potassium Level 4.8 Chloride Level 106 Carbon Dioxide Level 24 Anion Gap 18 H Blood Urea Nitrogen 10 Creatinine 0.48 Glucose Level 423 *H Hemoglobin A1c 10.0 H Calcium Level 8.3 L Total Bilirubin 0.3 Direct Bilirubin 0.00 Indirect Bilirubin 0.3 Aspartate Amino Transf (AST/SGOT) 19 Alanine Aminotransferase (ALT/SGPT) 48 Alkaline Phosphatase 79 Troponin I < 0.012 Total Protein 6.1 Albumin 3.5 Globulin 2.60 Albumin/Globulin Ratio 1.34 Triglycerides Level 83 Cholesterol Level 170 LDL Cholesterol, Calculated 98 HDL Cholesterol 55 Cholesterol/HDL Ratio 3.0 Test 05/30/17 14:10 Lactic Acid Level 4.5 *H Medications Medications Current Medications Duloxetine HCl (Cymbalta) 60 mg DAILY PO Last administered on 05/30/17 09:35; Admin Dose 60 MG; Start 05/30/17 at 09:00 Aspirin (Aspirin) 81 mg DAILY PO Last administered on 05/30/17 09:35; Admin Dose 81 MG; Start 05/30/17 at 09:00 Montelukast Sodium (Singulair) 10 mg DAILY PO Last administered on 05/30/17 09 :35; Admin Dose 10 MG; Start 05/30/17 at 09:00 Methylprednisolone Sodium Succinate 40 mg 40 mg DAILY IV Last administered on 09:31; Admin Dose 40 MG; Start 05/30/17 at 09:00 Ceftriaxone Sodium (Rocephin) 50 ml @ 100 mls/hr Q24H IVPB ; Start 05/30/17 at 02:00 Azithromycin (Zithromax) 250 mg HS PO ; Start 05/30/17 at 02:00 Insulin Glargine (Lantus) 40 unit HS SC ; Start 05/30/17 at 21:00 Insulin Human NPH (Humulin N) 40 unit DAILY SC Last administered on 05/30/17 09:33; Admin Dose 40 UNIT; Start 05/30/17 at 09:00 Miscellaneous Information 1 ea NOTE XX ; Start 05/30/17 at 08:30 Glucose (Glutose) 15 gm Q15M PRN PO DECREASED GLUCOSE; Start 05/30/17 at 08:30 Glucose (Glutose) 22.5 gm Q15M PRN PO DECREASED GLUCOSE; Start 05/30/17 at 08: 30 Dextrose (D50w Syringe) 25 ml Q15M PRN IV DECREASED GLUCOSE; Start 05/30/17 at 08:30 Dextrose (D50w Syringe) 50 ml Q15M PRN IV DECREASED GLUCOSE; Start 05/30/17 at 08:30 Glucagon (Glucagen) 1 mg Q15M PRN IM DECREASED GLUCOSE; Start 05/30/17 at 08:30 Glucose (Glutose) 15 gm Q15M PRN BUCCAL DECREASED GLUCOSE; Start 05/30/17 at 08 :30 Diagnostic Test (Pha) (Accu-Chek) 1 ea 02 XX ; Start 05/31/17 at 02:00 ALFREDO KEITA MD May 30, 2017 15:35
[2017-05-30] MEDS ORDERED: FUROSEMIDE 20 MG INJ IV ONE (16:00)
[2017-05-30] MEDS: ALBUTEROL/IPRATROPIUM (NEB) 3 ML AMP HHN SCH (20:42)
[2017-05-30] MEDS: METHYLPREDNISOLONE 40 MG INJ IV SCH (20:45)
[2017-05-30] MEDS: INSULIN GLARGINE [LANtus] 3 ML PEN SC SCH (20:51)
[2017-05-31] VITALS (11 sets, daily range): BP systolic 115–144; BP diastolic 62–72; PULSE 79–100; RESP 16–18
[2017-05-31] MEDS: ACCU-CHEK XX SCH (02:00)
[2017-05-31] MEDS: CEFTRIAXONE 1 GM/NS 50 ML IVPB SCH (02:25)
[2017-05-31] MEDS ORDERED: IBUPROFEN 600 MG TAB PO PRN (04:30)
[2017-05-31] MEDS: metFORMIN 500 MG TAB PO SCH ×2 (08:11→17:18)
[2017-05-31] MEDS: ASPIRIN 81 MG TAB PO SCH (08:11)
[2017-05-31] MEDS: DULOXETINE 30 MG CAP DR PO SCH (08:12)
[2017-05-31] MEDS: METHYLPREDNISOLONE 40 MG INJ IV SCH ×2 (08:12→21:43)
[2017-05-31] MEDS: MONTELUKAST 10 MG TAB PO SCH (08:12)
[2017-05-31] MEDS: NPH, HUMAN INSULIN ISOPHANE 3ML VIAL SC SCH ×2 (08:13→21:47)
[2017-05-31] MEDS: INSULIN ASPART [NOVOLOG] 3 ML PEN SC SCH ×7 (08:14→20:40)
[2017-05-31 08:53] LABS: BASOPHILS % 0.1 % (0.0-2.0); EOSINOPHILS % 0.1 % (0.0-7.0); HEMATOCRIT 38.6 % (37.0-47.0); HEMOGLOBIN 12.8 g/dl (12.0-16.0); LYMPHOCYTES % 13.3 % (15.0-51.0); MEAN CORPUSCULAR HEMOGLOBIN 32.1 pg (29.0-33.0); MEAN CORPUSCULAR HGB CONC 33.2 g/dl (32.0-37.0); MEAN CORPUSCULAR VOLUME 96.7 fl (82.0-101.0); MEAN PLATELET VOLUME 9.4 fl (7.4-10.4); MONOCYTE # 0.4 10^3/ul (0.3-0.9); MONOCYTES % 2.9 % (0.0-11.0); NEUTROPHILS % 83.2 % (39.0-77.0); PLATELET COUNT 261 10^3/UL (140-415); RED BLOOD COUNT 3.99 10^6/ul (4.20-5.40); RED CELL DISTRIBUTION WIDTH 11.9 % (11.5-14.5); WHITE BLOOD COUNT 14.9 10^3/ul (4.8-10.8)
[2017-05-31 09:30] LABS: CALCIUM 8.9 mg/dl (8.4-10.2); CREATININE 0.46 mg/dl (0.44-1.00); POTASSIUM 4.6 mmol/L (3.5-5.1)
[2017-05-31] MEDS: ALBUTEROL/IPRATROPIUM (NEB) 3 ML AMP HHN SCH ×4 (09:33→21:20)
--- NOTE | 2017-05-31 10:42 | RADRPT ---
Echocardiogram Report Patient Name: MENA CAMEJO Gender: Female Date: 1960 Study Date: 30-May-2017 Sports Official: Hayes Jean Baptiste [facility] Location: [id number] Ref. Physician: RAZIA HADLEY Quality: Adequate Procedures: Transthoracic echocardiogram with complete 2D, M-Mode, and doppler examination. Indications: Chest Pain. Shortness of breath. 2D/M Mode Doppler Measurement Value Normal Ranges Measurement Value Normal Ranges LVIDd 2D 5.0 3.5 - 5.6 cm AV Peak Alexandru 1.4 m/sec LVIDs 2D 3.5 2.1 - 4.1 cm AV Peak PG 8.0 mmHg FS 2D 30.2 % LVOT Peak Alexandru 1.1 m/sec LVPWd 2D 1.1 0.6 - 1.1 cm LVOT Peak PG 5.0 mmHg IVSd 2D 1.0 0.6 - 1.1 cm MV E Peak Alexandru 0.9 m/sec IVS/LVPW 2D 0.9 MV A Peak Alexandru 1.0 m/sec AoR Diam 2D 2.9 2.0 - 3.7 cm MV E/A 0.9 LA/Ao 2D 1 0 - 1 MV Decel Time 222 msec EDV 2D 125.0 cm3 MV E/A 0.9 ESV 2D 42.5 cm3 TR Peak Alexandru 1.5 m/sec LA Dimen 2D 3.6 2.3 - 4.0 cm TR Peak PG 9.0 mmHg RVSP 12.0 mmHg Findings Left Ventricle: Normal left ventricular systolic function. Normal left ventricular cavity size. Normal left ventricular wall thickness. Ejection fraction is visually estimated at 65 %. Tissue Doppler/Mitral Doppler indices are consistent with impaired relaxation (Stage I diastolic dysfunction). Right Ventricle: Normal right ventricular size. Normal right ventricular systolic function. Left Atrium: The left atrium is normal in size. Right Atrium: The right atrium is normal in size. Mitral Valve: Mitral valve leaflets appear mildly thickened. Mild mitral annular calcification. Trace mitral regurgitation. Aortic Valve: Normal appearance of the aortic valve. No significant aortic stenosis or insufficiency. Tricuspid Valve: Normal appearance and function of the tricuspid valve with trace physiologic regurgitation. Normal right ventricular systolic pressure. Estimated peak PA systolic pressure 12 mmHg. Pulmonic Valve: Normal pulmonic valve appearance. Pericardium: Normal pericardium with no significant pericardial effusion. Aorta: Normal aortic root. IVC: Normal size and normal respiratory collapse consistent with normal right atrial pressure. Conclusions 1.Normal left ventricular systolic function. Normal left ventricular cavity size. Normal left ventricular wall thickness. Ejection fraction is visually estimated at 65 %. Tissue Doppler/Mitral Doppler indices are consistent with impaired relaxation (Stage I diastolic dysfunction). 2.Mitral valve leaflets appear mildly thickened. Mild mitral annular calcification. Trace mitral regurgitation. 3.Normal appearance and function of the tricuspid valve with trace physiologic regurgitation. Normal right ventricular systolic pressure. Estimated peak PA systolic pressure 12 mmHg. Electronically Signed By: Osvaldo Butler 31-May-2017 10:41:21 -0700 Patient Name: MENA CAMEJO Study Date: 30-May-[id number]
--- NOTE | 2017-05-31 11:58 | PN ---
Date/Time of Note Date/Time of Note DATE: 05/31/17 TIME: 11:51 Assessment/Plan VTE Prophylaxis VTE Prophylaxis Intervention: ambulation, SCD's Lines/Catheters IV Catheter Type (from Nrs): Peripheral IV Urinary Cath still in place: No Assessment/Plan Problems: (1) Severe persistent asthma with acute exacerbation Status: Acute Comment: Appreciate pulmonary consultation. Per pulm. all of these symptoms are due to asthma exacerbation. Steroids increased to bid. Cont. breathing treatments. Defer to pulmonary. (2) Hypoxia Status: Acute Comment: Due to asthma. Improving. (3) Chest tightness Status: Acute Comment: Due to asthma. Worse this am. Improves w/ breathing treatments (4) Shortness of breath Status: Acute Comment: Improving w/ breathing treatments (5) Elevated lactic acid level Status: Acute Comment: Lactic acidosis is due to asthma as per pulmonary (6) Type 2 diabetes mellitus treated with insulin Status: Chronic Comment: Hyperglycemic but did not receive lantus 2 nights ago. Also medrol changed to bid w/o adding second dose of NPH. Cont. current doses of Lantus, Novolog, correction, and NPH and reeval tomorrow. Subjective 24 Hr Interval Summary Constitutional: improved, no complaints Respiratory: cough (decreased w/ breathing treatment) Cardiovascular: chest pain (this am but resolved w/ medication) Gastrointestinal: no complaints Genitourinary: no complaints Musculoskeletal: swelling (feels fingers always swollen) Neurologic: no complaints Exam/Review of Systems Vital Signs Vitals VS - Last 72 Hours, by Label Date Time Temp Pulse Resp B/P Pulse Ox O2 Delivery O2 Flow Rate FiO2 05/31/17 09:38 96 20 97 Nasal Cannula 4.0 05/31/17 09:34 97 4.0 05/31/17 08:25 98.0 85 16 131/68 99 05/31/17 08:00 86 05/31/17 08:00 Nasal Cannula 3.0 05/31/17 04:20 79 05/31/17 04:00 98.0 98 18 144/66 99 Nasal Cannula 3.0 05/31/17 01:27 87 05/31/17 00:00 98.5 98 18 121/66 98 Nasal Cannula 3.0 05/30/17 20:51 89 20 97 Nasal Cannula 4.0 05/30/17 20:51 4.0 05/30/17 20:27 94 05/30/17 20:01 Nasal Cannula 3.0 05/30/17 19:57 98.3 100 18 121/62 99 Nasal Cannula 4.0 05/30/17 17:00 92 20 98 Nasal Cannula 4.0 05/30/17 16:00 104 05/30/17 15:42 98.0 99 18 141/64 96 05/30/17 12:34 94 20 94 Nasal Cannula 5.0 05/30/17 12:10 98.0 100 20 143/63 98 05/30/17 12:00 93 05/30/17 08:00 Nasal Cannula 5.0 05/30/17 08:00 101 05/30/17 04:55 98.4 105 18 115/58 97 Nasal Cannula 2.0 05/29/17 21:45 98 22 96 Nasal Cannula 3.0 05/29/17 21:45 3.0 05/29/17 21:11 Nasal Cannula 3 05/29/17 20:33 98.6 135 24 139/72 94 Vital Signs Date Time Temp Pulse Resp B/P Pulse Ox O2 Delivery O2 Flow Rate FiO2 05/31/17 09:38 96 20 97 Nasal Cannula 4.0 05/31/17 08:25 98.0 131/68 Intake and Output 05/30/17 05/30/17 05/31/17 15:00 23:00 07:00 Intake Total 850 ml 300 ml Balance 850 ml 300 ml Exam Constitutional: alert, obese, oriented Psych: nl mood/affect, no complaints Respiratory: clear to auscultation, normal air movement (wheezing not heard) Cardiovascular: nl pulses, regular rate and rhythm, No edema, No murmurs/extra sounds, No rub Gastrointestinal: bowel sounds, nl liver, spleen, non-tender, soft, No mass, No rebound or guarding Musculoskeletal: nl extremities to inspection Extremities: normal pulses, No clubbing, No cyanosis, No edema Neurological: GLUING MACHINE FEEDER II-XII intact, nl mental status, nl speech, nl strength Additional Comments Bedside Glucose - 72 Hours Test 05/30/17 08:24 05/30/17 12:47 05/30/17 17:23 05/30/17 20:49 Bedside Glucose 371mg/dL (70-220) H 282mg/dL (70-220) H 245mg/dL (70-220) H 225mg/dL (70-220) H Test 05/31/17 02:30 05/31/17 07:53 Bedside Glucose 274mg/dL (70-220) H 267mg/dL (70-220) H Results Result Diagram: 05/31/17 0610 05/31/17 0610 Results 24 hrs Laboratory Tests Test 05/30/17 12:47 05/30/17 14:10 05/30/17 17:23 05/30/17 17:25 Bedside Glucose 282 H 245 H Lactic Acid Level 4.5 *H Troponin I < 0.012 < 0.012 Test 05/30/17 20:49 05/31/17 02:30 05/31/17 06:10 05/31/17 07:53 Bedside Glucose 225 H 274 H 267 H White Blood Count 14.9 #H Red Blood Count 3.99 L Hemoglobin 12.8 Hematocrit 38.6 Mean Corpuscular Volume 96.7 Mean Corpuscular Hemoglobin 32.1 Mean Corpuscular Hemoglobin Concent 33.2 Red Cell Distribution Width 11.9 Platelet Count 261 Mean Platelet Volume 9.4 Neutrophils % 83.2 H Lymphocytes % 13.3 L Monocytes % 2.9 Eosinophils % 0.1 Basophils % 0.1 Nucleated Red Blood Cells % 0.0 Neutrophils # (Manual) 12.4 H Lymphocytes # 2.0 Monocytes # 0.4 Eosinophils # 0.0 Basophils # 0.0 Nucleated Red Blood Cells # 0.0 Sodium Level 140 Potassium Level 4.6 Chloride Level 99 Carbon Dioxide Level 28 Anion Gap 18 H Blood Urea Nitrogen 16 Creatinine 0.46 Glucose Level 285 #H Lactic Acid Level 1.4 Calcium Level 8.9 Medications Medications Current Medications Duloxetine HCl (Cymbalta) 60 mg DAILY PO Last administered on 05/31/17 08:12; Admin Dose 60 MG; Start 05/30/17 at 09:00 Aspirin (Aspirin) 81 mg DAILY PO Last administered on 05/31/17 08:11; Admin Dose 81 MG; Start 05/30/17 at 09:00 Montelukast Sodium 10 mg 10 mg DAILY PO Last administered on 05/31/17 08:12; Admin Dose 10 MG; Start 05/30/17 at 09:00 Ceftriaxone Sodium (Rocephin) 50 ml @ 100 mls/hr Q24H IVPB Last administered on 05/31/17 02:25; Admin Dose 100 MLS/HR; Start 05/30/17 at 02:00 Azithromycin (Zithromax) 250 mg HS PO Last administered on 05/30/17 20:46; Admin Dose 250 MG; Start 05/30/17 at 02:00 Insulin Glargine (Lantus) 40 unit HS SC Last administered on 05/30/17 20:51; Admin Dose 40 UNIT; Start 05/30/17 at 21:00 Miscellaneous Information 1 ea NOTE XX ; Start 05/30/17 at 08:30 Glucose (Glutose) 15 gm Q15M PRN PO DECREASED GLUCOSE; Start 05/30/17 at 08:30 Glucose (Glutose) 22.5 gm Q15M PRN PO DECREASED GLUCOSE; Start 05/30/17 at 08: 30 Dextrose (D50w Syringe) 25 ml Q15M PRN IV DECREASED GLUCOSE; Start 05/30/17 at 08:30 Dextrose (D50w Syringe) 50 ml Q15M PRN IV DECREASED GLUCOSE; Start 05/30/17 at 08:30 Glucagon (Glucagen) 1 mg Q15M PRN IM DECREASED GLUCOSE; Start 05/30/17 at 08:30 Glucose (Glutose) 15 gm Q15M PRN BUCCAL DECREASED GLUCOSE; Start 05/30/17 at 08 :30 Diagnostic Test (Pha) (Accu-Chek) 1 ea 02 XX ; Start 05/31/17 at 02:00 Methylprednisolone Sodium Succinate (Solu-Medrol) 40 mg BID IV Last administered on 05/31/17 08:12; Admin Dose 40 MG; Start 05/30/17 at 21:00 Ibuprofen (Motrin) 600 mg Q6 PRN PO pain Last administered on 05/31/17 04:27; Admin Dose 600 MG; Start 05/31/17 at 04:30 Insulin Human NPH (Humulin N) 40 unit BID SC ; Start 05/31/17 at 21:00 RAZIA HADLEY MD May 31, 2017 11:58
--- NOTE | 2017-05-31 13:41 | CONS ---
Date/Time of Note Date/Time of Note DATE: 05/31/17 TIME: 13:39 Consult Date/Type/Reason Admit Date/Time May 30, 2017 at 04:45 Initial Consult Date Subjective No events. ECHO reviewed. Feeling better today. Objective Vital Signs Date Time Temp Pulse Resp B/P Pulse Ox O2 Delivery O2 Flow Rate FiO2 05/31/17 12:58 106 15 97 Nasal Cannula 4.0 05/31/17 12:47 98.0 130/72 Intake and Output 05/30/17 05/30/17 05/31/17 15:00 23:00 07:00 Intake Total 850 ml 300 ml Balance 850 ml 300 ml Exam HEENT: Neck supple; no JVD; no LAD CVS: RRR, S1 and S2 CHEST: Clear ABD: Soft, NT, + BS EXT: No c/c/ trace LE edema Results/Medications Result Diagram: 05/31/17 0610 05/31/17 0610 Results 24 hrs Laboratory Tests Test 05/30/17 14:10 05/30/17 17:23 05/30/17 17:25 05/30/17 20:49 Lactic Acid Level 4.5 *H Troponin I < 0.012 < 0.012 Bedside Glucose 245 H 225 H Test 05/31/17 02:30 05/31/17 06:10 05/31/17 07:53 05/31/17 12:15 Bedside Glucose 274 H 267 H 226 H White Blood Count 14.9 #H Red Blood Count 3.99 L Hemoglobin 12.8 Hematocrit 38.6 Mean Corpuscular Volume 96.7 Mean Corpuscular Hemoglobin 32.1 Mean Corpuscular Hemoglobin Concent 33.2 Red Cell Distribution Width 11.9 Platelet Count 261 Mean Platelet Volume 9.4 Neutrophils % 83.2 H Lymphocytes % 13.3 L Monocytes % 2.9 Eosinophils % 0.1 Basophils % 0.1 Nucleated Red Blood Cells % 0.0 Neutrophils # (Manual) 12.4 H Lymphocytes # 2.0 Monocytes # 0.4 Eosinophils # 0.0 Basophils # 0.0 Nucleated Red Blood Cells # 0.0 Sodium Level 140 Potassium Level 4.6 Chloride Level 99 Carbon Dioxide Level 28 Anion Gap 18 H Blood Urea Nitrogen 16 Creatinine 0.46 Glucose Level 285 #H Lactic Acid Level 1.4 Calcium Level 8.9 Medications Current Medications Duloxetine HCl (Cymbalta) 60 mg DAILY PO Last administered on 05/31/17 08:12; Admin Dose 60 MG; Start 05/30/17 at 09:00 Aspirin (Aspirin) 81 mg DAILY PO Last administered on 05/31/17 08:11; Admin Dose 81 MG; Start 05/30/17 at 09:00 Montelukast Sodium 10 mg 10 mg DAILY PO Last administered on 05/31/17 08:12; Admin Dose 10 MG; Start 05/30/17 at 09:00 Ceftriaxone Sodium (Rocephin) 50 ml @ 100 mls/hr Q24H IVPB Last administered on 05/31/17 02:25; Admin Dose 100 MLS/HR; Start 05/30/17 at 02:00 Azithromycin (Zithromax) 250 mg HS PO Last administered on 05/30/17 20:46; Admin Dose 250 MG; Start 05/30/17 at 02:00 Insulin Glargine (Lantus) 40 unit HS SC Last administered on 05/30/17 20:51; Admin Dose 40 UNIT; Start 05/30/17 at 21:00 Miscellaneous Information 1 ea NOTE XX ; Start 05/30/17 at 08:30 Glucose (Glutose) 15 gm Q15M PRN PO DECREASED GLUCOSE; Start 05/30/17 at 08:30 Glucose (Glutose) 22.5 gm Q15M PRN PO DECREASED GLUCOSE; Start 05/30/17 at 08: 30 Dextrose (D50w Syringe) 25 ml Q15M PRN IV DECREASED GLUCOSE; Start 05/30/17 at 08:30 Dextrose (D50w Syringe) 50 ml Q15M PRN IV DECREASED GLUCOSE; Start 05/30/17 at 08:30 Glucagon (Glucagen) 1 mg Q15M PRN IM DECREASED GLUCOSE; Start 05/30/17 at 08:30 Glucose (Glutose) 15 gm Q15M PRN BUCCAL DECREASED GLUCOSE; Start 05/30/17 at 08 :30 Diagnostic Test (Pha) (Accu-Chek) 1 ea 02 XX ; Start 05/31/17 at 02:00 Methylprednisolone Sodium Succinate (Solu-Medrol) 40 mg BID IV Last administered on 05/31/17 08:12; Admin Dose 40 MG; Start 05/30/17 at 21:00 Ibuprofen (Motrin) 600 mg Q6 PRN PO pain Last administered on 05/31/17t 04:27; Admin Dose 600 MG; Start 05/31/17 at 04:30 Insulin Human NPH (Humulin N) 40 unit BID SC ; Start 05/31/17 at 21:00 Assessment/Plan Chief Complaint/Hosp Course This is 56-year-old female with a history of severe persistent asthma on chronic systemic corticosteroids s/p numerous prior exacerbations who presents with worsening dyspnea with findings c/w an acute asthma exacerbation. Problems: Additional Assessment/Plan IMP: 1. Acute Asthma Exacerbation: with associated mild hypoxemia (A-a) O2 gradient 92 with no clear precipitating event. 2. Lactic Acidosis--due to #1 3. LE edema--likely due to IVF's and long term CS 4. DM RECS: 1. Continue BDs/CS/Abx 2. Titrate FiO2 3. Ambulate OOB 4. IgE and IgG/IgE for aspergillus--as work-up for ABPA ALFREDO KEITA MD May 31, 2017 13:41
--- NOTE | 2017-05-31 13:58 | RADRPT ---
Vent Rate: 76 bpm RR Interval: 0 msec NH Interval: 140 msec QRS Duration: 82 msec QT Interval: 364 msec QTC Interval: 409 msec P-R-T Rhame: 64 - 58 - 59 degrees Normal sinus rhythm Normal ECG No previous tracing available for comparison Electronically Signed By: Braeden Devi [id number]
[2017-05-31] MEDS ORDERED: FUROSEMIDE 20 MG INJ IV ONE (14:00)
--- NOTE | 2017-05-31 16:11 | RADRPT ---
PROCEDURE: XR Chest. CLINICAL INDICATION: Cough. Bronchitis. TECHNIQUE: Single frontal view. COMPARISON: 05/29/2017. FINDINGS: The lungs are clear. The heart size is normal. There is no pleural effusion. There is no pneumothorax. IMPRESSION: 1. Normal chest radiograph. 2. No change from 05/29/2017. RPTAT: QQ .Ravindra Guerra MD, MD Date Time Electronically viewed and signed by .Ravindra Guerra MD, on 05/31/2017 16:10 .R/
[2017-05-31] MEDS: AZITHROMYCIN 250 MG TAB PO SCH (20:31)
[2017-05-31] MEDS: INSULIN GLARGINE [LANtus] 3 ML PEN SC SCH (20:40)
[2017-06-01] VITALS (12 sets, daily range): BP systolic 117–151; BP diastolic 66–74; PULSE 78–106; RESP 18–20
[2017-06-01] MEDS: ACCU-CHEK XX SCH (01:46)
[2017-06-01 07:30] LABS: BASOPHILS % 0.2 % (0.0-2.0); HEMATOCRIT 39.3 % (37.0-47.0); HEMOGLOBIN 13.3 g/dl (12.0-16.0); LYMPHOCYTES # 1.7 10^3/ul (0.8-2.9); LYMPHOCYTES % 16.2 % (15.0-51.0); MEAN CORPUSCULAR HEMOGLOBIN 32.7 pg (29.0-33.0); MEAN CORPUSCULAR HGB CONC 33.8 g/dl (32.0-37.0); MEAN CORPUSCULAR VOLUME 96.6 fl (82.0-101.0); MEAN PLATELET VOLUME 9.3 fl (7.4-10.4); MONOCYTE # 0.3 10^3/ul (0.3-0.9); MONOCYTES % 2.9 % (0.0-11.0); NEUTROPHILS % 79.7 % (39.0-77.0); PLATELET COUNT 270 10^3/UL (140-415); RED BLOOD COUNT 4.07 10^6/ul (4.20-5.40); RED CELL DISTRIBUTION WIDTH 11.9 % (11.5-14.5); WHITE BLOOD COUNT 10.5 10^3/ul (4.8-10.8)
[2017-06-01] MEDS: INSULIN ASPART [NOVOLOG] 3 ML PEN SC SCH ×8 (07:47→20:46)
[2017-06-01 07:49] LABS: CALCIUM 9.3 mg/dl (8.4-10.2); CREATININE 0.47 mg/dl (0.44-1.00); POTASSIUM 4.2 mmol/L (3.5-5.1)
[2017-06-01] MEDS: metFORMIN 500 MG TAB PO SCH ×2 (07:49→17:14)
[2017-06-01] MEDS: NPH, HUMAN INSULIN ISOPHANE 3ML VIAL SC SCH ×2 (08:41→20:40)
[2017-06-01] MEDS: METHYLPREDNISOLONE 40 MG INJ IV SCH ×2 (08:42→20:35)
[2017-06-01] MEDS: ASPIRIN 81 MG TAB PO SCH (08:44)
[2017-06-01] MEDS: MONTELUKAST 10 MG TAB PO SCH (08:44)
[2017-06-01] MEDS: DULOXETINE 30 MG CAP DR PO SCH (08:44)
[2017-06-01] MEDS: ALBUTEROL/IPRATROPIUM (NEB) 3 ML AMP HHN SCH ×4 (09:28→20:17)
--- NOTE | 2017-06-01 11:23 | CONS ---
Date/Time of Note Date/Time of Note DATE: 06/01/17 TIME: 11:19 Assessment/Plan Assessment/Plan Additional Assessment/Plan Assessment and recommendations; 1. Patient admitted with asthma exacerbation and acute bronchitis with marked overall clinical improvement. Continue current treatment. Start steroid taper in 24 hours. Consultation Date/Type/Reason Admit Date/Time May 30, 2017 at 04:45 Initial Consult Date Type of Consultation: Pulmonary 24 HR Interval Summary Free Text/Dictation Patient condition is markedly improved. Shortness of breath is almost resolved. Complains of scant cough without any sputum production. Denies any sinus symptoms. Denies any wheezing. General exam; middle-aged woman, awake and alert. Currently in no distress. Exam/Review of Systems Vital Signs Vitals Vital Signs Date Time Temp Pulse Resp B/P Pulse Ox O2 Delivery O2 Flow Rate FiO2 06/01/17 09:30 93 20 98 21 06/01/17 07:48 97.8 146/73 05/31/17 16:20 Room Air 05/31/17 12:58 4.0 Intake and Output 05/31/17 05/31/17 06/01/17 15:00 23:00 07:00 Intake Total 300 ml Balance 300 ml Exam HEENT exam; supple neck, no JVD. No lymphadenopathy. Midline trachea. No thyromegaly. Patient has fair dentition. Pupils are midsize and reactive to light. Pharynx is clear. Chest exam; clear to auscultation. S1-S2 audible, no murmurs. Regular rhythm. Abdomen exam; soft, no organomegaly. Bowel sounds audible. Extremity exam; no peripheral edema. TUBING MILL SETTER exam; no focal deficit. Results Result Diagram: 06/01/17 0634 06/01/17 0634 Results 24 hrs Laboratory Tests Test 05/31/17 12:15 05/31/17 17:09 05/31/17 20:36 05/31/17 21:46 Bedside Glucose 226 H 227 H 183 165 Test 06/01/17 01:51 06/01/17 06:34 06/01/17 07:46 Bedside Glucose 246 H 207 White Blood Count 10.5 # Red Blood Count 4.07 L Hemoglobin 13.3 Hematocrit 39.3 Mean Corpuscular Volume 96.6 Mean Corpuscular Hemoglobin 32.7 Mean Corpuscular Hemoglobin Concent 33.8 Red Cell Distribution Width 11.9 Platelet Count 270 Mean Platelet Volume 9.3 Neutrophils % 79.7 H Lymphocytes % 16.2 Monocytes % 2.9 Eosinophils % 0.0 Basophils % 0.2 Nucleated Red Blood Cells % 0.0 Neutrophils # (Manual) 8.4 H Lymphocytes # 1.7 Monocytes # 0.3 Eosinophils # 0.0 Basophils # 0.0 Nucleated Red Blood Cells # 0.0 Sodium Level 141 Potassium Level 4.2 Chloride Level 98 Carbon Dioxide Level 29 Anion Gap 18 H Blood Urea Nitrogen 21 H Creatinine 0.47 Glucose Level 242 H Calcium Level 9.3 Medications Medications Current Medications Duloxetine HCl (Cymbalta) 60 mg DAILY PO Last administered on 06/01/17 08:44; Admin Dose 60 MG; Start 05/30/17 at 09:00 Aspirin (Aspirin) 81 mg DAILY PO Last administered on 06/01/17 08:44; Admin Dose 81 MG; Start 05/30/17 at 09:00 Montelukast Sodium (Singulair) 10 mg DAILY PO Last administered on 06/01/17 08 :44; Admin Dose 10 MG; Start 05/30/17 at 09:00 Azithromycin (Zithromax) 250 mg HS PO Last administered on 05/31/17 20:31; Admin Dose 250 MG; Start 05/30/17 at 02:00 Insulin Glargine (Lantus) 40 unit HS SC Last administered on 05/31/17 20:40; Admin Dose 40 UNIT; Start 05/30/17 at 21:00 Miscellaneous Information 1 ea NOTE XX ; Start 05/30/17 at 08:30 Glucose (Glutose) 15 gm Q15M PRN PO DECREASED GLUCOSE; Start 05/30/17 at 08:30 Glucose (Glutose) 22.5 gm Q15M PRN PO DECREASED GLUCOSE; Start 05/30/17 at 08: 30 Dextrose (D50w Syringe) 25 ml Q15M PRN IV DECREASED GLUCOSE; Start 05/30/17 at 08:30 Dextrose (D50w Syringe) 50 ml Q15M PRN IV DECREASED GLUCOSE; Start 05/30/17 at 08:30 Glucagon (Glucagen) 1 mg Q15M PRN IM DECREASED GLUCOSE; Start 05/30/17 at 08:30 Glucose (Glutose) 15 gm Q15M PRN BUCCAL DECREASED GLUCOSE; Start 05/30/17 at 08 :30 Diagnostic Test (Pha) (Accu-Chek) 1 XX ; Start 05/31/17 at 02:00 Methylprednisolone Sodium Succinate (Solu-Medrol) 40 mg BID IV Last administered on 06/01/17 08:42; Admin Dose 40 MG; Start 05/30/17 at 21:00 Ibuprofen (Motrin) 600 mg Q6 PRN PO pain Last administered on 05/31/17 04:27; Admin Dose 600 MG; Start 05/31/17 at 04:30 Insulin Human NPH (Humulin N) 40 unit BID SC Last administered on 06/01/17 08: 41; Admin Dose 40 UNIT; Start 05/31/17 at 21:00 NELA GUTIERREZ Jun 01, 2017 11:23
--- NOTE | 2017-06-01 13:49 | PN ---
Date/Time of Note Date/Time of Note DATE: 06/01/17 TIME: 13:45 Assessment/Plan VTE Prophylaxis VTE Prophylaxis Intervention: heparin Lines/Catheters IV C[facility]ter Type (from [facility] Saline Lock Urinary Cath still in place: No Assessment/Plan Problems: (1) Severe persistent asthma with acute exacerbation Status: Acute Comment: Patient has historically been seen by an particle board supervisor who recommended allergy desensitization shots. I do not have access to information about whether or not she had elevated IgE levels were elevated eosinophil counts. She is normally treated by our colleague in pulmonary medicine Dr. Haywood. We will continue with her care. In terms of whether or not this could represent allergic bronchopulmonary aspergillosis while her scans are not exactly classical for this workup as an appropriate pursuit (2) Allergic rhinitis Status: Chronic Comment: Like her asthma this would be helped with allergy shots. The main issue here is an insurance one in that she has a $30 co-pay for each and every allergy shots. Qualifiers: Chronicity: unspecified Allergic rhinitis trigger: unspecified Allergic rhinitis seasonality: non-seasonal Qualified Code: J30.89 - Non-seasonal allergic rhinitis, unspecified chronicity, unspecified trigger (3) Lumbar disc disease Status: Chronic Comment: Noted and stable (4) Migraine syndrome Status: Chronic Comment: Quiescent at this time (5) Type 2 diabetes mellitus treated with insulin Status: Chronic Comment: With the steroids her sugars have risen up. We will tighten up on this and allow us to decrease the steroid dosing as the breathing improves. (6) Elevated lactic acid level Status: Resolved Comment: Resolved Subjective 24 Hr Interval Summary Free Text/Dictation Patient reports that she is feeling better. No wheezing Constitutional: no complaints (No fevers chills or sweats) Respiratory: shortness of breath (Mild shortness of breath) Cardiovascular: no complaints Gastrointestinal: no complaints Exam/Review of Systems Vital Signs Vitals Vital Signs Date Time Temp Pulse Resp B/P Pulse Ox O2 Delivery O2 Flow Rate FiO2 06/01/17 12:39 92 06/01/17 11:49 97.4 20 145/73 94 06/01/17 09:30 21 05/31/17 16:20 Room Air 05/31/17 12:58 4.0 Intake and Output 05/31/17 05/31/17 06/01/17 15:00 23:00 07:00 Intake Total 300 ml Balance 300 ml Exam Constitutional: alert, oriented Respiratory: normal air movement, wheezing Cardiovascular: nl pulses, regular rate and rhythm Results Result Diagram: 06/01/17 0634 06/01/17 0634 Results 24 hrs Laboratory Tests Test 05/31/17 17:09 05/31/17 20:36 05/31/17 21:46 06/01/17 01:51 Bedside Glucose 227 H 183 165 246 H Test 06/01/17 06:34 06/01/17 07:46 06/01/17 11:47 White Blood Count 10.5 # Red Blood Count 4.07 L Hemoglobin 13.3 Hematocrit 39.3 Mean Corpuscular Volume 96.6 Mean Corpuscular Hemoglobin 32.7 Mean Corpuscular Hemoglobin Concent 33.8 Red Cell Distribution Width 11.9 Platelet Count 270 Mean Platelet Volume 9.3 Neutrophils % 79.7 H Lymphocytes % 16.2 Monocytes % 2.9 Eosinophils % 0.0 Basophils % 0.2 Nucleated Red Blood Cells % 0.0 Neutrophils # (Manual) 8.4 H Lymphocytes # 1.7 Monocytes # 0.3 Eosinophils # 0.0 Basophils # 0.0 Nucleated Red Blood Cells # 0.0 Sodium Level 141 Potassium Level 4.2 Chloride Level 98 Carbon Dioxide Level 29 Anion Gap 18 H Blood Urea Nitrogen 21 H Creatinine 0.47 Glucose Level 242 H Calcium Level 9.3 Bedside Glucose 207 220 Medications Medications Current Medications Duloxetine HCl (Cymbalta) 60 mg DAILY PO Last administered on 06/01/17 08:44; Admin Dose 60 MG; Start 05/30/17 at 09:00 Aspirin (Aspirin) 81 mg DAILY PO Last administered on 06/01/17 08:44; Admin Dose 81 MG; Start 05/30/17 at 09:00 Montelukast Sodium (Singulair) 10 mg DAILY PO Last administered on 06/01/17 08 :44; Admin Dose 10 MG; Start 05/30/17 at 09:00 Azithromycin (Zithromax) 250 mg HS PO Last administered on 05/31/17 20:31; Admin Dose 250 MG; Start 05/30/17 at 02:00 Insulin Glargine (Lantus) 40 unit HS SC Last administered on 05/31/17 20:40; Admin Dose 40 UNIT; Start 05/30/17 at 21:00 Miscellaneous Information 1 ea NOTE XX ; Start 05/30/17 at 08:30 Glucose (Glutose) 15 gm Q15M PRN PO DECREASED GLUCOSE; Start 05/30/17 at 08:30 Glucose (Glutose) 22.5 gm Q15M PRN PO DECREASED GLUCOSE; Start 05/30/17 at 08: 30 Dextrose (D50w Syringe) 25 ml Q15M PRN IV DECREASED GLUCOSE; Start 05/30/17 at 08:30 Dextrose (D50w Syringe) 50 ml Q15M PRN IV DECREASED GLUCOSE; Start 05/30/17 at 08:30 Glucagon (Glucagen) 1 mg Q15M PRN IM DECREASED GLUCOSE; Start 05/30/17 at 08:30 Glucose (Glutose) 15 gm Q15M PRN BUCCAL DECREASED GLUCOSE; Start 05/30/17 at 08 :30 Diagnostic Test (Pha) (Accu-Chek) 1 ea 02 XX ; Start 05/31/17 at 02:00 Methylprednisolone Sodium Succinate (Solu-Medrol) 40 mg BID IV Last administered on 06/01/17 08:42; Admin Dose 40 MG; Start 05/30/17 at 21:00 Ibuprofen (Motrin) 600 mg Q6 PRN PO pain Last administered on 05/31/17 04:27; Admin Dose 600 MG; Start 05/31/17 at 04:30 Insulin Human NPH (Humulin N) 40 unit BID SC Last administered on 06/01/17 08: 41; Admin Dose 40 UNIT; Start 05/31/17 at 21:00 CAMPBELL EWING MD Jun 01, 2017 13:49
[2017-06-01] MEDS: AZITHROMYCIN 250 MG TAB PO SCH (20:35)
[2017-06-01] MEDS: INSULIN GLARGINE [LANtus] 3 ML PEN SC SCH (20:39)
[2017-06-02] VITALS (12 sets, daily range): BP systolic 124–170; BP diastolic 60–81; PULSE 73–110; RESP 17–20
[2017-06-02] MEDS: ACCU-CHEK XX SCH (02:00)
[2017-06-02] MEDS: metFORMIN 500 MG TAB PO SCH ×2 (07:56→17:13)
[2017-06-02] MEDS: INSULIN ASPART [NOVOLOG] 3 ML PEN SC SCH ×7 (07:58→21:00)
[2017-06-02] MEDS: ASPIRIN 81 MG TAB PO SCH (08:28)
[2017-06-02] MEDS: DULOXETINE 30 MG CAP DR PO SCH (08:28)
[2017-06-02] MEDS: NPH, HUMAN INSULIN ISOPHANE 3ML VIAL SC SCH ×2 (08:30→21:24)
[2017-06-02] MEDS: MONTELUKAST 10 MG TAB PO SCH (08:30)
[2017-06-02] MEDS: METHYLPREDNISOLONE 40 MG INJ IV SCH ×2 (08:32→21:15)
[2017-06-02] MEDS: ALBUTEROL/IPRATROPIUM (NEB) 3 ML AMP HHN SCH ×4 (08:33→20:19)
--- NOTE | 2017-06-02 09:22 | CONS ---
Date/Time of Note Date/Time of Note DATE: 06/02/17 TIME: 09:20 Assessment/Plan Assessment/Plan Additional Assessment/Plan Recommendations; 1. Patient admitted with asthma exacerbation with significant clinical improvement. 2. Severe coughing episodes. Continue current treatment. Add cough syrup. Delay steroid taper for additional 24 hours. Consultation Date/Type/Reason Admit Date/Time May 30, 2017 at 04:45 Type of Consultation: Pulmonary 24 HR Interval Summary Free Text/Dictation Patient condition is stable. Complains of severe coughing episodes. Denies any wheezing, any shortness of breath. Any chest pain. Denies any sputum production. Denies any postnasal drip or acid reflux symptoms. General exam; middle-aged woman, awake and alert. Currently in no distress. Severe coughing bouts were observed. Exam/Review of Systems Vital Signs Vitals Vital Signs Date Time Temp Pulse Resp B/P Pulse Ox O2 Delivery O2 Flow Rate FiO2 06/02/17 08:35 90 22 94 Nasal Cannula 2.0 06/02/17 08:15 97.7 167/80 06/01/17 20:18 21 Intake and Output 06/01/17 06/01/17 06/02/17 15:00 23:00 07:00 Intake Total 960 ml Balance 960 ml Exam HEENT exam; supple neck, no JVD. No lymphadenopathy. Midline trachea. No thyromegaly. Pharynx is clear. Patient has fair dentition. Chest exam; clear to auscultation. S1-S2 audible, no murmurs. Regular rhythm. Abdomen exam; soft, no organomegaly. Nontender. Bowel sounds audible. Extremity exam; no peripheral edema. DIRECTOR FINANCIAL ANALYSIS exam; no focal deficit. Results Result Diagram: 06/01/17 0634 06/01/17 0634 Results 24 hrs Laboratory Tests Test 06/01/17 11:47 06/01/17 17:13 06/01/17 20:33 06/02/17 07:41 Bedside Glucose 220 213 142 169 Medications Medications Current Medications Duloxetine HCl (Cymbalta) 60 mg DAILY PO Last administered on 06/02/17 08:28; Admin Dose 60 MG; Start 05/30/17 at 09:00 Aspirin (Aspirin) 81 mg DAILY PO Last administered on 06/02/17 08:28; Admin Dose 81 MG; Start 05/30/17 at 09:00 Montelukast Sodium (Singulair) 10 mg DAILY PO Last administered on 06/02/17 08 :30; Admin Dose 10 MG; Start 05/30/17 at 09:00 Azithromycin (Zithromax) 250 mg HS PO Last administered on 06/01/17 20:35; Admin Dose 250 MG; Start 05/30/17 at 02:00 Insulin Glargine (Lantus) 40 unit HS SC Last administered on 06/01/17 20:39; Admin Dose 40 UNIT; Start 05/30/17 at 21:00 Miscellaneous Information 1 ea NOTE XX ; Start 05/30/17 at 08:30 Glucose (Glutose) 15 gm Q15M PRN PO DECREASED GLUCOSE; Start 05/30/17 at 08:30 Glucose (Glutose) 22.5 gm Q15M PRN PO DECREASED GLUCOSE; Start 05/30/17 at 08: 30 Dextrose (D50w Syringe) 25 ml Q15M PRN IV DECREASED GLUCOSE; Start 05/30/17 at 08:30 Dextrose (D50w Syringe) 50 ml Q15M PRN IV DECREASED GLUCOSE; Start 05/30/17 at 08:30 Glucagon (Glucagen) 1 mg Q15M PRN IM DECREASED GLUCOSE; Start 05/30/17 at 08:30 Glucose (Glutose) 15 gm Q15M PRN BUCCAL DECREASED GLUCOSE; Start 05/30/17 at 08 :30 Diagnostic Test (Pha) (Accu-Chek) 1 ea 02 XX ; Start 05/31/17 at 02:00 Methylprednisolone Sodium Succinate (Solu-Medrol) 40 mg BID IV Last administered on 06/02/17 08:32; Admin Dose 40 MG; Start 05/30/17 at 21:00 Ibuprofen (Motrin) 600 mg Q6 PRN PO pain Last administered on 05/31/17 04:27; Admin Dose 600 MG; Start 05/31/17 at 04:30 Insulin Human NPH (Humulin N) 40 unit BID SC Last administered on 06/02/17 08: 30; Admin Dose 40 UNIT; Start 05/31/17 at 21:00 NELA GUTIERREZ Jun 02, 2017 09:21
[2017-06-02] MEDS ORDERED: GUAIFENESIN/DM 5ML CUP PO PRN (09:30)
--- NOTE | 2017-06-02 17:49 | PN ---
Date/Time of Note Date/Time of Note DATE: 06/02/17 TIME: 17:47 Assessment/Plan VTE Prophylaxis VTE Prophylaxis Intervention: anti-embolic stocking Lines/Catheters IV Catheter Type (from Nrs): Saline Lock Urinary Cath still in place: No Assessment/Plan Problems: (1) Type 2 diabetes mellitus treated with insulin Status: Chronic Comment: As the steroid dose comes down she has been feeling better. We will continue her treatments and watch her sugars (2) Severe persistent asthma with acute exacerbation Status: Acute Comment: She is improving nicely. We will would really help here is allergy desensitization shots which are financially a hardship for her. I will try and work something out between her and the optimization engineer to my office (3) Lumbar disc disease Status: Chronic Comment: Noted (4) Other obesity due to excess calories Status: Chronic Comment: Counseled Subjective 24 Hr Interval Summary Free Text/Dictation And has had some coughing spells today but she reports she is from her perspective improved Constitutional: no complaints Respiratory: cough, shortness of breath Exam/Review of Systems Vital Signs Vitals Vital Signs Date Time Temp Pulse Resp B/P Pulse Ox O2 Delivery O2 Flow Rate FiO2 06/02/17 17:30 103 18 98 Nasal Cannula 2.0 06/02/17 16:14 98.0 147/60 06/01/17 20:18 21 Intake and Output 06/01/17 06/01/17 06/02/17 14:59 22:59 06:59 Intake Total 960 ml Balance 960 ml Exam Constitutional: alert, oriented Respiratory: normal air movement, wheezing Cardiovascular: nl pulses, regular rate and rhythm Results Result Diagram: 06/01/17 0634 06/01/17 0634 Results 24 hrs Laboratory Tests Test 06/01/17 20:33 06/02/17 07:41 06/02/17 11:42 06/02/17 17:05 Bedside Glucose 142 169 240 H 157 Medications Medications Current Medications Duloxetine HCl (Cymbalta) 60 mg DAILY PO Last administered on 06/02/17 08:28; Admin Dose 60 MG; Start 05/30/17 at 09:00 Aspirin (Aspirin) 81 mg DAILY PO Last administered on 06/02/17 08:28; Admin Dose 81 MG; Start 05/30/17 at 09:00 Montelukast Sodium (Singulair) 10 mg DAILY PO Last administered on 06/02/17 08 :30; Admin Dose 10 MG; Start 05/30/17 at 09:00 Azithromycin (Zithromax) 250 mg HS PO Last administered on 06/01/17 20:35; Admin Dose 250 MG; Start 05/30/17 at 02:00 Insulin Glargine (Lantus) 40 unit HS SC Last administered on 06/01/17 20:39; Admin Dose 40 UNIT; Start 05/30/17 at 21:00 Miscellaneous Information 1 ea NOTE XX ; Start 05/30/17 at 08:30 Glucose (Glutose) 15 gm Q15M PRN PO DECREASED GLUCOSE; Start 05/30/17 at 08:30 Glucose (Glutose) 22.5 gm Q15M PRN PO DECREASED GLUCOSE; Start 05/30/17 at 08: 30 Dextrose (D50w Syringe) 25 ml Q15M PRN IV DECREASED GLUCOSE; Start 05/30/17 at 08:30 Dextrose (D50w Syringe) 50 ml Q15M PRN IV DECREASED GLUCOSE; Start 05/30/17 at 08:30 Glucagon (Glucagen) 1 mg Q15M PRN IM DECREASED GLUCOSE; Start 05/30/17 at 08:30 Glucose (Glutose) 15 gm Q15M PRN BUCCAL DECREASED GLUCOSE; Start 05/30/17 at 08 :30 Diagnostic Test (Pha) (Accu-Chek) 1 ea 02 XX ; Start 05/31/17 at 02:00 Methylprednisolone Sodium Succinate (Solu-Medrol) 40 mg BID IV Last administered on 06/02/17 08:32; Admin Dose 40 MG; Start 05/30/17 at 21:00 Ibuprofen (Motrin) 600 mg Q6 PRN PO pain Last administered on 05/31/17 04:27; Admin Dose 600 MG; Start 05/31/17 at 04:30 Insulin Human NPH (Humulin N) 40 unit BID SC Last administered on 06/02/17 08: 30; Admin Dose 40 UNIT; Start 05/31/17 at 21:00 Guaifenesin/ Dextromethorphan (Robitussin Dm Liquid Cup) 5 ml Q4H PRN PO COUGH ; Start 06/02/17 at 09:30 CAMPBELL EWING MD Jun 02, 2017 17:49
[2017-06-02] MEDS: AZITHROMYCIN 250 MG TAB PO SCH (21:16)
[2017-06-02] MEDS: INSULIN GLARGINE [LANtus] 3 ML PEN SC SCH (21:22)
[2017-06-03] VITALS (11 sets, daily range): BP systolic 125–147; BP diastolic 62–83; PULSE 81–94; RESP 17–19
[2017-06-03] MEDS: ACCU-CHEK XX SCH (02:00)
[2017-06-03] MEDS: INSULIN ASPART [NOVOLOG] 3 ML PEN SC SCH ×4 (08:00→12:39)
[2017-06-03] MEDS: ALBUTEROL/IPRATROPIUM (NEB) 3 ML AMP HHN SCH ×3 (08:34→17:00)
[2017-06-03] MEDS: MONTELUKAST 10 MG TAB PO SCH (09:10)
[2017-06-03] MEDS: DULOXETINE 30 MG CAP DR PO SCH (09:10)
[2017-06-03] MEDS: METHYLPREDNISOLONE 40 MG INJ IV SCH (09:11)
[2017-06-03] MEDS: ASPIRIN 81 MG TAB PO SCH (09:11)
[2017-06-03] MEDS: metFORMIN 500 MG TAB PO SCH (09:11)
[2017-06-03] MEDS: NPH, HUMAN INSULIN ISOPHANE 3ML VIAL SC SCH (09:22)
--- NOTE | 2017-06-03 12:55 | PDOCDIS ---
Discharge Instructions DIAGNOSIS Discharge Diagnosis Asthma exacerbation; DM2; GERDz; Obesity;Lumbar Disc Dz.; Migraine CONDITION Patient Condition: Fair HOME CARE INSTRUCTIONS: Special Diet: Carb Controlled ACTIVITY: Activity Restrictions: Slowly Increase Activity Do not operate Machinery Do not operate Power Tool FOLLOW UP/APPOINTMENTS Follow-up Plan Department Assistant for allergy shots in 2 weeks, Pulmonary and Dr. Cuellar in 3 weeks CAMPBELL CUELLAR MD Jun 03, 2017 12:55
[2017-06-03] MEDS ORDERED: PRED20TA PO (12:57)
--- NOTE | 2017-06-03 13:28 | CONS ---
Date/Time of Note Date/Time of Note DATE: 06/03/17 TIME: 13:26 Assessment/Plan Assessment/Plan Additional Assessment/Plan Assessment and recommendations; 1. Patient admitted with severe asthma exacerbation with acute bronchitis with marked overall clinical improvement. Next 2. History of diabetes. Patient can be discharged home on a Medrol Dosepak with continuation of Zithromax 250 mg orally for additional 2 days. Patient is to continue with bronchodilators on outpatient basis in conjunction with her long-acting steroid inhaler and long-acting beta agonist on a regular basis. Consultation Date/Type/Reason Admit Date/Time May 30, 2017 at 04:45 Type of Consultation: Pulmonary 24 HR Interval Summary Free Text/Dictation Patient condition is markedly improved. Denies any coughing. Any wheezing or shortness of breath. Denies any sputum production. General exam; middle-aged woman, awake and alert. Currently in no distress. No coughing observed. Exam/Review of Systems Vital Signs Vitals Vital Signs Date Time Temp Pulse Resp B/P Pulse Ox O2 Delivery O2 Flow Rate FiO2 06/03/17 12:18 88 06/03/17 12:11 98.0 17 144/83 98 06/03/17 08:35 Nasal Cannula 2.0 06/01/17 20:18 21 Intake and Output 06/02/17 06/02/17 06/03/17 15:00 23:00 07:00 Intake Total 1150 ml Balance 1150 ml Exam HEENT exam; supple neck, no JVD. No lymphadenopathy. Midline trachea. No thyromegaly. Patient has fair dentition. Chest exam; clear to auscultation. S1-S2 audible, no murmurs. Regular rhythm. Abdomen exam; soft, nontender. No organomegaly. Bowel sounds audible. Extremity exam; no peripheral edema. TEXTILE CHEMIST exam; no focal deficit. Results Result Diagram: 06/01/17 0634 06/01/17 0634 Results 24 hrs Laboratory Tests Test 06/02/17 17:05 06/02/17 21:13 06/03/17 02:07 06/03/17 07:40 Bedside Glucose 157 114 169 130 Test 06/03/17 12:33 Bedside Glucose 116 Medications Medications Current Medications Duloxetine HCl (Cymbalta) 60 mg DAILY PO Last administered on 06/03/17t 09:10; Admin Dose 60 MG; Start 05/30/17 at 09:00 Aspirin (Aspirin) 81 mg DAILY PO Last administered on 06/03/17 09:11; Admin Dose 81 MG; Start 05/30/17 at 09:00 Montelukast Sodium (Singulair) 10 mg DAILY PO Last administered on 06/03/17 09 :10; Admin Dose 10 MG; Start 05/30/17 at 09:00 Azithromycin (Zithromax) 250 mg HS PO Last administered on 06/02/17 21:16; Admin Dose 250 MG; Start 05/30/17 at 02:00 Insulin Glargine (Lantus) 40 unit HS SC Last administered on 06/02/17 21:22; Admin Dose 40 UNIT; Start 05/30/17 at 21:00 Miscellaneous Information 1 ea NOTE XX ; Start 05/30/17 at 08:30 Glucose (Glutose) 15 gm Q15M PRN PO DECREASED GLUCOSE; Start 05/30/17 at 08:30 Glucose (Glutose) 22.5 gm Q15M PRN PO DECREASED GLUCOSE; Start 05/30/17 at 08: 30 Dextrose (D50w Syringe) 25 ml Q15M PRN IV DECREASED GLUCOSE; Start 05/30/17 at 08:30 Dextrose (D50w Syringe) 50 ml Q15M PRN IV DECREASED GLUCOSE; Start 05/30/17 at 08:30 Glucagon (Glucagen) 1 mg Q15M PRN IM DECREASED GLUCOSE; Start 05/30/17 at 08:30 Glucose (Glutose) 15 gm Q15M PRN BUCCAL DECREASED GLUCOSE; Start 05/30/17 at 08 :30 Diagnostic Test (Pha) (Accu-Chek) 1 ea 02 XX ; Start 05/31/17 at 02:00 Methylprednisolone Sodium Succinate (Solu-Medrol) 40 mg BID IV Last administered on 06/03/17 09:11; Admin Dose 40 MG; Start 05/30/17 at 21:00 Ibuprofen (Motrin) 600 mg Q6 PRN PO pain Last administered on 05/31/17 04:27; Admin Dose 600 MG; Start 05/31/17 at 04:30 Insulin Human NPH (Humulin N) 40 unit BID SC Last administered on 06/03/17 09: 22; Admin Dose 40 UNIT; Start 05/31/17 at 21:00 Guaifenesin/ Dextromethorphan (Robitussin Dm Liquid Cup) 5 ml Q4H PRN PO COUGH ; Start 06/02/17 at 09:30 NELA GUTIERREZ Jun 03, 2017 13:28
== END 2017-06-03 17:20 | disposition home or self-care (01) | DRG 202 ==
LOC: E/R 20:28 → MS4 05-30 04:45
PROVIDERS: ADMIT Internal Medicine; ATTEND Internal Medicine
DX: J45.901 Unspecified asthma with (acute) exacerbation (principal); E87.2 Acidosis; E11.9 Type 2 diabetes mellitus without complications; R05 Cough; R09.02 Hypoxemia; M51.36 Other intervertebral disc degeneration, lumbar region; Z79.4 Long term (current) use of insulin; Z79.82 Long term (current) use of aspirin
CPT/HCPCS: 36415; 36600; 71010; 71275; 80048; 80053; 80061; 81003; 82785; 82803; 82962; 83036; 83605; 83880; 84484; 85025; 86606; 87040; 87086; 93005; 93306; 94640; 94644; 94664; 96372; 96374; 96375; J1940; J0456; J0696; J1815; J1885; J2920; J2930; J7030; Q9967

== ENCOUNTER 2017-12-15 01:37 | Emergency (ER) | END 2017-12-15 06:49 | disposition home or self-care (01) ==